=== PATIENT | female | born 1940 | race Caucasian/White ===

== ENCOUNTER 2016-10-31 19:19 | Inpatient (IN) | payer MEDICARE ==
[~2016-10-31] VITALS: Ht 165.1 cm; Wt 77.4 kg
--- NOTE | ~2016-10-31 | CON ---
PATIENT'S NAME: SHANNON YEH [facility] AGE: 75 Y [address] ROOM: [id number] [place], [place] [address] LOCATION: GICU ADMIT DATE: 10/31/2016 Consultation DISCHARGE DATE: FAMILY PHYSICIAN: PHYSICIAN, NO ATTENDING PHYSICIAN: JESSIE CERRATO V DATE OF CONSULTATION: 11/07/2016 HISTORY OF PRESENT ILLNESS: The patient was evaluated and discussed with the treatment team. Shannon was evaluated earlier by Dr. Dawn on 11/04/2016 and consult was reviewed. Also case reviewed with Dr. Michaels. Also called her , Bandar Yeh, to get some background information. The clinical concerns recently have been confused and a delirium kind of picture, restlessness, agitated, and not the most aware of her surroundings. She is on IV Ativan which is being utilized on a p.r.n. basis. The feels that since the addition of the Ativan, she has been more slurred and confused which can happen on the benzodiazepines. That is pretty much the only psychotropic medication being utilized at this time. The medical issues were assessed and reviewed as well. reports that they have been together for 58 years now and Shannon has a history of depression for the last several years and also points out that she is extremely sensitive to psychotropic medications. "She ." Same reaction on some of the pain medications and anxiety medications have been utilized in the past. states that the baseline function is really good. No cognitive deficits whatsoever, but before all this happened intelligent, very verbose, and no concerns around any confusion, until she was found unresponsive which led to this hospitalization. MENTAL STATUS EXAMINATION: Restless, lying in her bed. Increased response latency. Able to understand questions. Try to give us answer but struggling. Could not tell me her whereabouts. Could not tell me the name of the or her date of , for example. Affect was somewhat restricted, almost flat. for a long time but not able to respond, needed to be physically restricted because of being a fall risk. ASSESSMENT: 1. Delirium, acute and perhaps etiology multiple. 2. Bipolar disorder, by history. PLAN: At this time, we will discontinue the IV Ativan. Switch her to a small dose PATIENT'S NAME: SHANNON YEH [facility] AGE: 75 Y [address] ROOM: [place] [address] LOCATION: [facility] ADMIT DATE: 10/31/2016 Consultation DISCHARGE DATE: FAMILY PHYSICIAN: PHYSICIAN, NO ATTENDING PHYSICIAN: JESSIE CERRATO V of oral Ativan 0.25 mg t.i.d. In the short term, will augment with Risperdal 0.25 mg b.i.d. The patient is able to accept the medications that are crushed. It is hoped that the Risperdal is only going to be utilized in a short term basis to address the restlessness and the agitation. The risks, benefits, including the FDA warning were discussed with the , Bandar, and he was in agreement. Risperdal can be discontinued in about a couple of weeks. MD LINDA SINGH/reena /[id number] d: 11/07/167 t: 11/12/16 1359, CONSULTATION REPORT
--- NOTE | ~2016-10-31 | DS ---
PATIENT'S NAME: LEISA PRATER [facility] AGE: 75 Y [address] ROOM: [id number], [place] [address] LOCATION: GICU ADMIT DATE: 10/31/2016 Discharge Summary DISCHARGE DATE: 11/17/2016 FAMILY PHYSICIAN: PHYSICIAN, NO ATTENDING PHYSICIAN: Abram Miranda V FINAL DIAGNOSES: 1. Acute encephalopathy. 2. Anoxic brain insult. 3. Paroxysmal atrial fibrillation. 4. Pcf-VC-edujwdfu myocardial infarction. 5. Diastolic congestive heart failure. 6. Duodenal ulcer. 7. Acute blood loss anemia secondary to ulcer and left leg bleed. 8. Bipolar disorder. 9. Left groin spontaneous bleed. 10. Leukocytosis, felt to be leukemoid reaction. HISTORY OF PRESENT ILLNESS: For details of admission, please see the history and physical dictated by Dr. Miranda. In short, the patient was found obtunded by her and admitted here, was transferred here for higher level of care. She was intubated upon arrival. LABORATORY DATA: ABGs on admission; pH 7.35, pCO2 38, PO2 140. Her lactate was 2.5. She was intubated. On admission, sodium 143, the highest it got was 148 on November 04, prior to discharge 143. Potassium on admission was 4.3, did get as low as 2.6 on November 03. It was 2.8 on the . 2.7 on the , prior to discharge 3.9. Chloride on admission was 113, discharge 107. CO2 on admission was 17, discharge 28. BUN on admission was 11, discharge 15. Creatinine on admission was 0.8, discharge 0.5. Liver enzymes on admission were normal. Magnesium on admission 1.9, most prior to discharge 2.3. Cardiac enzymes on admission were normal. On November 05, her CK was found to be 937, MB 12.3, with a troponin of 7.3. Her troponins were negative on admission, it became elevated on the of 7.07. ProBNP on the was 21,524. Dilantin level on the was 5.6. Salicylate level on admission was 14.1, TSH on admission was 0.645. Parathyroid hormone on November 02 was 247. Prolactin level on admission was 76.5. Her white blood cell count on admission was 7.2, it did come to 14.2 right away, remained in the teens until on the , it went to 26.2, most prior to discharge was 13.8. Hemoglobin on admission was 14.4, she did drop into the 12 range on the , remained stable there, on the was noted to be 10.4 and then dropped to 8. Most prior to discharge, it was 8.5. Her MCV on admission was 93.8. Platelet count on admission was 353, most prior to discharge 388. D-dimer on admission was 0.85. Procalcitonin on admission was negative. Urinalysis on admission did not show any evidence of infection. Repeat on the did not show any PATIENT'S NAME: LEISA PRATER [facility] AGE: 75 Y [address] [id number] [address] LOCATION: [facility] ADMIT DATE: 10/31/2016 Discharge Summary DISCHARGE DATE: 11/17/2016 FAMILY PHYSICIAN: PHYSICIAN, PATTY ATTENDING PHYSICIAN: Abram Miranda V evidence of infection. Urine drug screen on admission was negative. MICROBIOLOGY DATA: Blood cultures were negative. X-RAY DATA: On admission, a chest x-ray did not show any acute like changes. CT scan of the brain on admission working up for stroke did not show any acute intracranial hemorrhages or abnormalities. MRI performed on the showed qvnahrmu-hx-mdsgyk atrophy, no acute ischemic changes. CT scan of the chest, the PE protocol done on the showed edema but did not show any evidence of pulmonary edema. CT angiogram of abdomen and pelvis done on November 09 showed suspected hemorrhage in the adductor muscles on the left thigh. CARDIOVASCULAR DATA: Heart catheterization done by Dr. Becker showed really nonobstructive coronary artery disease. Please see the cath note for full details. Echocardiogram done at admission showed that her ejection fraction was 55% to 60%. She had grade 1 diastolic dysfunction. HOSPITAL COURSE: The patient was admitted initially into the intensive care unit. She was intubated. She was initially worked up with a stroke protocol based upon her presentation. A CT scan was done in the ER and MRI was ordered. Neurology was asked to see the patient. Her prolactin value did return elevated, so there was some concern that she had a seizure. She was hypokalemic, she was replaced. She was given IV hydration. Her cardiac enzymes were obtained. She was started on IV antibiotics empirically and cultures were obtained, which did eventually return negative. There was some thought that this might be a systemic serious type reaction. She did require Precedex for sedation. Tube feeds were initiated to help with nutritional status. She was hypocalcemic. This needs to be replaced as well. The patient was able to be extubated on November 03. She then began exhibiting behavior type issues. Shortly after extubation, she did have stridor and received Solu-Medrol and racemic epinephrine. She had been on steroids and this was weaned. She did require Zyprexa for her agitated behaviors. She did have fairly high oxygen requirements. Her potassium was noted to be low and she was given potassium. Her cardiac enzymes were obtained when she presented with supraventricular tachycardia, atrial fibrillation type picture. She also appeared to be acutely short of breath. She was seen by Cardiology. When her troponins returned elevated, she was started on acute coronary protocol and given Lasix. She is given a dose of IV Lasix. She was taken to the electroplating laborer by Dr. Becker. Please see his catheterization note for full details. There were no interventions required at that time. It was felt that she had a non-STEMI. She was on medication for seizures. There were adjustments made in her antianginals and medicines for congestive heart failure. She continued to have very aggressive behavior, so Psychiatry did see her. They initially have placed her on Ativan and Risperdal. Medications for her seizures were adjusted. She was tachycardic and she did receive diltiazem. Her antibiotics PATIENT'S NAME: LEISA PRATER [facility] AGE: 75 Y [address] ROOM: [id number] [place] [id number] LOCATION: [facility] ADMIT DATE: 10/31/2016 Discharge Summary DISCHARGE DATE: 11/17/2016 FAMILY PHYSICIAN: PHYSICIAN, NO ATTENDING PHYSICIAN: Abram Miranda V had been stopped shortly after admission, it was determined that she did not have any ongoing infection. A CT scan of the chest was done to rule out a PE protocol on because of the new onset atrial fibrillation. A PICC line was placed so that we did have IV access. She was given sotalol. She developed diarrhea, so she is checked for C. diff. She did go in and out of atrial fibrillation, but she then did eventually convert to sinus rhythm. She became hypotensive and her hemoglobin was dropping. She required 2 units of packed red blood cells on the . At that time, Dr. Berry was asked to see her. The heparin was stopped. She was given a dose of ProAmatine. Dr. Berry did take her and felt that she needed to have an EGD to evaluate for bleeding. The EGD did show anastomotic ulcer. She has a history of a surgery. She was put on a PPI and Carafate. Her hemoglobin did remain stable. She then also was noted to have some bruising in her left leg. She did in fact was noted to have a bleed in her left leg. After that, her white blood cell count became very elevated. There were no evidence of infection. She was worked up as it was felt that it was a leukemoid type reaction. She did continue to improve. Dr. Winter was asked to see her to see if she is a candidate for inpatient rehab. Her kidney function and electrolytes were monitored closely. Dr. Winter did feel that she would benefit from going to rehab. Her did speak with me about medications and the concern about being on Risperdal and the Ativan. The decision was made to try and wean her Risperdal. The patient did continue to improve and was felt to be stable enough to be transferred to inpatient rehab on the . She is to have a regular diet. Weightbearing as tolerated. PT, OT, and Speech to work with her. MEDICATIONS: 1. Aspirin 81 mg daily. 2. Lipitor 40 mg daily. 3. Lactinex 4 tablets three times daily. 4. Zestril 2.5 mg daily. 5. Ativan 0.25 mg 3 times daily. 6. Magnesium oxide 400 mg daily. 7. Protonix 40 mg daily. 8. Dilantin 100 mg 3 times daily. 9. Risperdal 0.25 mg, which would stop on the and then she is to go 0.25 mg every other day for 4 more doses. 10. Betapace 40 mg twice daily. 11. Carafate 1000 mg before meals and at bedtime. 12. Myrbetriq 50 mg daily. 13. Depakote 500 mg twice daily. 14. Tylenol 650 mg every 4 hours. 15. Prevalite 4 g 4 times daily as needed for diarrhea. 16. Zinc oxide ointment for skin rash. 17. Ascorbic acid 50 mg daily. PATIENT'S NAME: LEISA PRATER [facility] AGE: 75 Y [address] ROOM: [place] [address] LOCATION: [facility] ADMIT DATE: 10/31/2016 Discharge Summary DISCHARGE DATE: 11/17/2016 FAMILY PHYSICIAN: PHYSICIAN, NO ATTENDING PHYSICIAN: Abram Miranda V 18. Calcium with vitamin D one tablet at bedtime. 19. Vitamin D 2000 units daily. 20. Albuterol inhaled as needed. OVERALL PROGNOSIS: At discharge was fair mainly because of her psychiatric issues. CHARITO DUPONT MD LAW/modl /[id number] d: 11/18/16 0247 t: 11/20/16 1509, DISCHARGE SUMMARY
--- NOTE | ~2016-10-31 | CATH ---
Cardiac Diagnostic Report Demographics Patient Name JOSI Carranza Gender Female Date of 1940 Age 75 year(s) Patient Number [id number] Date of Study 11/05/2016 Visit Number [id number] Room Number G62[address] [place] [id number] Ht 165.1 cm Wt 78 kg Referring Ruben Valverde Primary Physician Physician Braulio ABDALLA Performing Efstratiou Secondary Physician Physician Karla Abdi MD Diagnostic Efstratiou Assisting Physician Physician Karla Abdi MD Interventional Physician Nitrator Operator Physician Findings and Conclusions Diagnostic Findings and Conclusion Moderate pulmonary hypertention Moderately elevated wedge pressure EF 40 akinetic anterolateral wall Mild MR Moderate diffuse CAD Does not explain recent AMI Possible embolization of thrombus. Q waves and enzyme elevation not characteristic of Takotsubo Diagnostic Recommendations Medical management of acute CHF and ischemic cardiomyopathy Procedure Description The patient was brought to the diagnostic cardiac catheterization-EP laboratory by home performance laborer personal in an emergent fashion. Physician deemed procedure as EMERGENT. The planned puncture-incision site(s) were shaved and prepped with ChloraPrep and draped in the usual sterile manner. Supplemental oxygen administered. Arterial access. The access site was infiltrated with lidocaine. The vessel was entered with the Seldinger technique. A sheath was advanced into the vessel and used for catheter placement. Right heart catheterization. A Gregory Levi catheter was successfully advanced to the right atrium, right ventricle, pulmonary artery, and pulmonary artery wedge position under fluoroscopic guidance. Resting hemodynamics were obtained. Measurements included pressures. Selective right coronary angiography. A catheter was advanced into the right coronary vessel ostium under fluoroscopic guidance. Contrast was injected by hand. Images were obtained in multiple projections. Selective left coronary angiography. A catheter was advanced into the left coronary vessel ostium under Fluoroscopic guidance. Contrast was injected by hand. Images were obtained in multiple projections. A catheter was advanced across the aortic valve to the left ventricle under fluoroscopic guidance. Resting hemodynamics were obtained. With the catheter at the left ventricular apex, contrast was injected. Images were obtained in OLVERA projection. Post-ventriculography LV pressure was obtained. The catheter was gradually withdrawn into the aorta with continuous pressure recording. Hemostasis: The sheath(s) was removed and manual compression was performed. Hemostasis was achieved. Hemostasis was achieved. The patient was transported back to the nursing floor via bed with home performance laborer personnel in stable condition while monitored. Diagnostic Cath Status: Urgent Procedure Procedure Type Diagnostic procedure:Ventriculogram:, Left, Angiography:, Right and Left Heart Cath, Coronary Angios Indications: Acute myocardial infarction. The procedure was explained in detail to the patient. Risks, complications and alternative treatments were reviewed. Written consent was obtained. Medications Reviewed with Patient prior to Procedure. Angiographic Findings Dominance: Right Cardiac Arteries and Lesion Findings LMCA: Abnormal.30% distal Lesion on LMCA: Ostial.30% stenosis . LAD: Abnormal.30 % proximal mid Lesion on Prox LAD: 30% stenosis . Lesion on 1st Diag: Ostial.50% stenosis . LCx: Abnormal.30% ostial, 20 mid Lesion on Prox CX: Ostial.30% stenosis . Lesion on Mid CX: 20% stenosis . RCA: Abnormal.30% mid Lesion on Mid RCA: 30% stenosis . Coronary Tree Procedure Data Procedure Date Date: 11/05/2016Start: 10:07 PMEnd: 11:15 PM Entry Locations - Antegrade Percutaneous access was performed through the Right Femoral vein. A 6 Fr sheath was inserted. - Retrograde Percutaneous access was performed through the Right Radial artery (Primary location). A 6 Fr sheath was inserted. Hemostasis was successfully obtained using a TR band. Closure Comments: 19 cc air placed by Dayron Mcwilliams.. Procedure Medications Order and Administration + + + +--------+ !Time !Medication !Dosage !Route ! + + + +--------+ !11/05/2016 10:11 PM !Radial Heparin (ACC_3) !4000 units !I.A. ! + + + +--------+ !11/05/2016 10:11 PM !Radial Verapamil !3 mg ! ! + + + +--------+ !11/05/2016 10:11 PM !Radial Nitroglycerin !200 mcg ! ! + + + +--------+ !11/05/2016 10:24 PM !Lasix !20 mg !I.V. ! + + + +--------+ !11/05/2016 10:27 PM !unlisted medication !100 mg ! ! + + + +--------+ Devices Used - A6 Fr. Balloon Wedge Catheterwas used for:Right heart cath. - A6 Fr. BS JR 4 Diag. Catheterwas used for:Right coronary angiography. - A6 Fr. BS JL 3.5 Diag. Catheterwas used for:Left coronary angiography. - A6 Fr. BS Angled Pigtail Diag. Catheterwas used for:LV Pressures. Contrast Material - Isovue 35801 ml Fluoroscopy Time: Diagnostic: 5:00 minutes. Total: 5:00 minutes. Fluoroscopy Dose: Diagnostic: 397 mGy. Total: 397 mGy. Estimated Blood Loss: 5 ml. Medical History Allergies - Latex. - Sulfa. Risk Factors The patient risk factors include:hypercholesterolemia, dyslipidemia and prior heart failure . Admission Data Admission Date: 10/31/2016 Admission Time: 09:26 PM Insurance Payors: Medicare. Clinical Evaluation Leading to Procedure - There were no CAD presentation symptoms. VA LV function assessed as:Abnormal. Ejection Fraction - Method: LV gram. EF%: 40. Snapshots Hemodynamics Condition: Rest O2 Consumption: Estimated: 189.49Heart Rate: 99 bpm Oxygen Saturation +--------+-----+----+ +----+ + !Location!pCO2 !pO2 !% Saturation !Hgb !O2 Content ! +--------+-----+----+ +----+ + !RA ! ! !58.5 !13.1! ! +--------+-----+----+ +----+ + !PA ! ! !54.7 !13.1! ! +--------+-----+----+ +----+ + !FA ! ! !89.8 !13.1! ! +--------+-----+----+ +----+ + Pressures (mmHg) +-----+ + !Site !Pressure ! +-----+ + !RA ! () ! +-----+ + !RV !48/6 ,12 ! +-----+ + !PCW ! () ! +-----+ + !PA !40/19 (29) ! +-----+ + !PA !23/-9 (2) ! +-----+ + !LV !142/9 ,19 ! +-----+ + !LV !150/33 ,21 ! +-----+ + !AO !150/76 (110) ! +-----+ + !AO !/ (4) ! +-----+ + Cardiac Output +------+ + + + !Method!CO (l/min) !CI (l/min/m2) !SV (ml) ! +------+ + + + !Reza !3.03 !1.6 !30.48 ! +------+ + + + Valve Gradients and Areas + +--------+--------+--------+---------+ + + !Valve !Peak !Mean !Area !Index !Flow !Source ! + +--------+--------+--------+---------+ + + !Aortic !0 !0 ! ! !294.75 !Reza ! + +--------+--------+--------+---------+ + + !Aortic !0 !0 ! ! ! ! ! + +--------+--------+--------+---------+ + + Shunts Oxygen Values O2 Capacity 178.16 O2 Consumption 189.49 Flows (l/min) Qs 3.4 Vascular Resistance (dynes x sec x cm-5) + +----+---+----+---+---------+-------+ !CO method !TSVR!SVR!TPVR!PVR!TPVR/TSVR!PVR/SVR! + +----+---+----+---+---------+-------+ !Reza !1.44! !0.81! !0.56 ! ! + +----+---+----+---+---------+-------+ !Qp or Qs !1.29! ! ! ! ! ! + +----+---+----+---+---------+-------+ Signatures dtt: Alcides Becker dtd: 11/05/16 2207 Physician Self Edit
--- NOTE | ~2016-10-31 | CON ---
PATIENT'S NAME: LEISA YEH [facility] AGE: 75 Y [address] ROOM: G6212 [place], [place] [address] LOCATION: GICU ADMIT DATE: 10/31/2016 Consultation DISCHARGE DATE: FAMILY PHYSICIAN: PHYSICIAN, NO ATTENDING PHYSICIAN: JESSIE CERRATO V HISTORY OF PRESENT ILLNESS: The patient was seen on a stroke alert in the emergency room today, 10/31/2016, at 15 minutes after 7:00 p.m. I was called to assess Ms. Yeh who was a 75-year-old female patient. I obtained a history from her , Gerry. He tells me that the patient is a generally healthy lady, but does suffer from a manic, depressive state and has been fairly depressed over the past 2 weeks. However, he denies that she has any suicidal ideations. She does have chronic issues with pain associated with arthritis and has been on unknown medications. The patient's says that he was with her at this morning, and the patient went out shopping while he stayed in the car. He did not notice any problems with her during the day. They came back to have lunch and she asked for particular lunch, but he did not notice any problems during lunch such as problems eating or chewing. Eventually, he went out to do some work in the front yard and came in at around 2:00 and then apparently saw her in her bedroom. He went in to take a shower and supposedly did cuddle up with her in the bed and noticed that she was acting strange, either was having mumbling of her speech or was not making much sense according to the , tried to "wake her up" and waited about 10 to 20 minutes again and tried to wake her up again. He did not notice any problems with the patient breathing funny. He said that she was breathing shallow, but she was having some hiccups. He did not notice any cyanosis of the skin or of the lips. It seems as though he possibly waited again while she was unresponsive and 15 minutes thereafter tried to wake her up again, then sought help. I am not aware of the time between the patient's first noticing her obtunded and when EMS came as it may have been a few hours from my conjecture. The patient was seen in the field and had to be intubated due to airway support. The EMS says that she was completely unresponsive, not moving any limb. They did a pulse oxygenation on her and it was noted to be in the 60s. Giving her oxygen at that time did increase the pulse oxygenation, but she had to be intubated in the field for airway support. When I saw her in the emergency room, she was unresponsive. She was not moving any limbs. Her pupils were fixed forward and 5 mm, mildly dilated. There was no evidence of any increased tone in the limbs or flaccid limbs. She was not moving any extremity until around 20 minutes later when there was some movement of her left upper extremity. Vital signs apparently showed sinus tachycardia in the 110 to 120 range. Blood pressure was reported to me to be "excellent" in the field. She had no reported hypotension. The patient again was not noted to be cyanotic, she had good color. CAT scan was done, which showed no evidence of an intracranial hemorrhage or evidence of an evolving stroke. She had generalized atrophy of the brain with appropriate dilation of the ventricles for the amount of PATIENT'S NAME: LEISA YEH [facility] AGE: 75 Y [address] ROOM: [place] [address] LOCATION: [facility] ADMIT DATE: 10/31/2016 Consultation DISCHARGE DATE: FAMILY PHYSICIAN: PHYSICIAN, NO ATTENDING PHYSICIAN: JESSIE CERRATO. I saw no evidence of a dense MCA sign. Further speaking to the , he denies that she has any drug abuse problems. He denies that she has any alcohol problems. She occasionally does binge alcohol, but he is unsure if she had alcohol recently. She supposedly does drink alcohol on an intermittent basis, certainly not on a daily basis, and the last alcohol, he believes, was over 1 week ago. There is no known history of coronary artery disease or hypertension. Of note, she does have severe depression. It is unclear as to whether this is bipolar depression. There is some report that her daughter committed suicide back in 2013. The patient's mother also had possible bipolar depression. The is unaware if the patient was ever on a mood stabilizing medication or if she is on any particular antidepressant medications. He is unaware of the particular pain medication that she is on, whether she is on any opiate medications or non-opiate medications. Current medical doctor is Dr. Barbosa in [place] who treats her for her arthritis. Again, no history of known diabetes or hypertension. FAMILY HISTORY: Consistent with possible bipolar depression in her grandmother and in her daughter. The patient is for 58 years. They have no current children as mentioned. A daughter committed suicide in 2013. The patient and her are . 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 SMOKING HISTORY: She stopped smoking a number of years ago, but is "addicted to nicotine gum chewing." REVIEW OF SYSTEMS: The patient is a zouox-ng-ec-healthy patient, otherwise with a history of depression. Was found by sometime perhaps around 2:30 p.m. unresponsive, lying in the bed. The patient's tried to wake her up. He reported that she had her head face down into the pillow, and then he put her up, reported, on to her back, this being while she was unresponsive. There was a possibility she was having some hiccuping and was essentially unresponsive and not making any word production. For any signs of potential seizures, there was some possible movement of her limbs in a jerking manner, but it is difficult to assess for seizure. There is a history here of arthritis for which the patient is on chronic pain medications of unknown. We do not have a medication list presently. The rest of review of systems is within normal limits according to the and the history. PHYSICAL EXAMINATION: HEENT: The patient has slightly dilated pupils to 5 mm. Eyes are fixed forward. There is no corneal reflex present. There is no gag. The patient does have minimal response to pain, but I cannot appreciate any withdrawal of PATIENT'S NAME: LEISA YEH [facility] AGE: 75 Y [address] ROOM: [address] [address] LOCATION: [facility] ADMIT DATE: 10/31/2016 Consultation DISCHARGE DATE: FAMILY PHYSICIAN: PHYSICIAN, NO ATTENDING PHYSICIAN: JESSIE CERRATO V her limbs. There was slight withdrawal to her left upper extremity. Presently, the patient is intubated. She did not receive a current sedation. IMPRESSION: An unknown reason for the patient having loss of consciousness. The history provided by the is not giving me information that she may have had a seizure. Perhaps, the patient may have had an event of becoming more obtunded if she was on an opiate pain medication. We simply do not know her medication list, all we know is that she was found unresponsive and relatively hypoxic. It is interesting that the patient's says that she was lying on her stomach with the face into the pillow and he placed her on her back. She is known to have severe depression and over the last 2 weeks, there is severe depression going on according to the . He denies that the patient ever had any suicidal ideations though. We simply have to do a drug toxicology and possibly treat for overdose if possible. There is no evidence though of an obvious opiate overdose based upon her pupils that are normal, not widened, and it is quite possible that the patient did have a generalized seizure and is postictal presently, though it is many hours at this point now, and I would expect that the patient would have some improvement even after a generalized seizure. The patient will be placed into the ICU and laboratories will be done. I will follow along with the hospital staff on the patient's status. MD OMAR REEDER/adolfol /[id number] d: 11/01/16 0239 t: 11/22/16 0818, CONSULTATION REPORT
--- NOTE | ~2016-10-31 | ECHO ---
Transthoracic Echocardiography Report (TTE) Demographics Patient Name LEISA PRATER Date of Study 11/06/2016 Patient Number [id number] Visit Number [id number] Date of 1940 Room Number G6232 Gender Female Number Age 75 year(s) Referring Donnell Khalil MD Profile Mill Operator Tape Control Lesley RVT, RDCS Physician Emi Melendez RDCS, RVT Physician Interpreting Caryl Danielle MD Patient Services Manager Physician Supervising Ordering Donnell Khalil MD, MD/MLP Physician Nurse Stress Game Preserve Manager Conclusions Contractility Score Summary Normal Left Ventricular contractility was noted. Summary Technically difficult exam. Normal LV/RV size and systolic function .The estimated left ventricular ejection fraction is 55-60%. Moderate concentric left ventricular hypertrophy. Diastolic assessment reveals Grade I diastolic dysfunction. No significant valvular abnormalities. No evidence of pericardial effusion. Procedure Type of Study TTE procedure:2D Echocardiogram. Procedure Date Date: 11/06/2016 Start: 03:53 PM Study Location: Inpatient Portable Technical Quality: Limited visualization due to combative patient. Indications:Supraventricular Tachycardia. Appropriate Use Criteria: 9 Patient Status: Routine HR: 96 bpm BP: 134/69 mmHg Allergies - Latex. - Sulfa. M-Mode/2D Measurements LV Diastolic Dimension: 4.34 cm LV Systolic Dimension: 1.96 cm LV Septum Diastolic: 1.49 cm LV PW Diastolic: 1.33 cm AO Root Dimension: 2 cm AV Cusp Separation: 1.4 cm RV Diastolic Dimension: 2.36 cm LA Dimension: 2.6 cm LA volume: 17 ml RV Base: 2.12 cm LVOT: 2.1 cm RV Mid: 1.6 cm RV Length: 5.07 cm TAPSE: 2.27 cm TDI-S': 21.2 cm/s Doppler Measurements AV Peak Velocity: 1.55 m/s MV Peak E-Wave: 0.83 m/s AV Peak Gradient: 9.61 mmHg MV Peak A-Wave: 1.09 m/s MV E/A Ratio: 0.77 MV P1/2t: 80 msec TR Velocity:2.05 m/s TR Gradient:16.81 mmHg Estimated RVSP: 22 mmHg PV Peak Velocity: 0.81 m/s E' Septal Velocity: 0.07 m/s PV Peak Gradient: 2.64 mmHg E' Lateral Velocity: 0.06 m/s Estimated PASP: 21.81 mmHg A' Septal Velocity: 0.15 m/s Findings Left Ventricle Moderate concentric left ventricular hypertrophy. Diastolic assessment reveals Grade I diastolic dysfunction. Right Ventricle Normal right ventricle structure and function. Left Atrium Normal left atrial size. Right Atrium Normal right atrial size. IVC imaging is consistent with normal RA pressures. Mitral Valve Trivial mitral regurgitation by color Doppler. Aortic Valve Mild aortic valve sclerosis. Tricuspid Valve Normal tricuspid valve structure and function. Pulmonic Valve Normal pulmonic valve structure and function. Pericardial Effusion No evidence of pericardial effusion. Miscellaneous Visualized portions of the aortic root and ascending aorta appear normal in size. Pleural Effusion No evidence of pleural effusion. Contractility Score LV regional wall motion:(0-Non visualized 1-Normal 2-Hypokinesis 3-Akinesis 4-Dyskinesis 5-Aneurysm) Signature dtt: MAYA HILL dtd: 11/06/16 1553 Physician Self Edit
--- NOTE | ~2016-10-31 | CON ---
PATIENT'S NAME: JOSI [facility] AGE: 75 Y [address] ROOM: [place] [address] LOCATION: GICU ADMIT DATE: 10/31/2016 Consultation DISCHARGE DATE: FAMILY PHYSICIAN: PHYSICIAN, NO ATTENDING PHYSICIAN: JESSIE CERRATO V REASON FOR CONSULTATION: Hypotension, question of GI bleed. HISTORY OF PRESENT ILLNESS: This is a 75-year-old female, who was admitted on 10/31/2016 with history of respiratory failure, silent MS, and has been on IV heparin along with beta angel. Dr. Becker of cardiology service contacted me in view of concern about GI bleed in the setting of IV heparin and previous history of duodenal ulcer and use of nonsteroidals. The patient is unable to provide much history, and as per nursing, there has been no obvious GI bleed. She denies any abdominal pain. There is a remote history of "bleeding duodenal ulcer" and therefore the concern. PAST MEDICAL HISTORY: 1. Recent MS. 2. Bipolar disorder. 3. Encephalopathy. 4. Respiratory failure. 5. Deep venous thrombosis. The patient has been addressed by Neurology service. MEDICATIONS: Noted in her MAR. IV heparin was discontinued and placed on Protonix. SOCIAL HISTORY: As reviewed in the chart. FAMILY HISTORY: Reviewed. REVIEW OF SYSTEMS: As listed in the HPI and otherwise negative. PHYSICAL EXAMINATION: GENERAL: The patient is awake, alert, however, responds poorly to questions. VITAL SIGNS: Stable. PATIENT'S NAME: [facility] AGE: 75 Y [address] ROOM: [place] [address] LOCATION: [facility] ADMIT DATE: 10/31/2016 Consultation DISCHARGE DATE: FAMILY PHYSICIAN: PHYSICIAN, NO ATTENDING PHYSICIAN: JESSIE CERRATO V HEENT: Nonicteric sclerae. Pupils round and reactive. CHEST: Clear to auscultation. HEART: S1, S2 normal. ABDOMEN: Soft and nondistended without palpable masses or tenderness. LABORATORY DATA AND X-RAYS: Labs are reviewed and hemoglobin drop is noted. The patient is receiving blood transfusion. ASSESSMENT AND PLAN: A 75-year-old female with a suspected upper gastrointestinal bleed in the setting of anticoagulation therapy and previous history of "duodenal ulcer" and use of nonsteroidals. We will arrange for urgent upper endoscopy, and if negative may be reasonable to obtain CT of the abdomen to rule out retroperitoneal bleed. Further recommendations pending the results of this evaluation. Thank you for this consult. BIGG LAZAR MD AM/reena /[id number] d: 11/09/16 2243 t: 11/10/16 1128, CONSULTATION REPORT
--- NOTE | ~2016-10-31 | CON ---
PATIENT'S NAME: SHANNON PRATER [facility] AGE: 75 Y [address] ROOM: G6232 [place], [place] [address] LOCATION: GICU ADMIT DATE: 10/31/2016 Consultation DISCHARGE DATE: FAMILY PHYSICIAN: PHYSICIAN, NO ATTENDING PHYSICIAN: JESSIE CERRATO V DATE OF CONSULTATION: 11/04/2016 PSYCHIATRIC CONSULTATION IDENTIFYING DATA: Shannon is a 75-year-old, . She is an [place] female, lives with her in [place]. Admitted to the ICU initially and subsequently to the medical floor, after her found her unconscious. Information obtained by talking to the patient and from the and from the patient's nurse, Heather. More than 50% of time spent in counseling and coordination of care. HISTORY OF PRESENT ILLNESS: As per the information available from the , he found the patient unconscious and brought her to the hospital. reports that the patient has a chronic history of mental health struggles and has been diagnosed with bipolar disorder, where she has had highs and lows of moods. Over the last couple of months, things have been a lot worse as well. She has not been on any medications lately with her moods and the patient's feels that the patient does need to be on medication. Also the reports that she has been under a lot more stress because of the some of the family stressors with none of the children want to talk to her, anymore as they blame her for her what happened to one of their siblings, who committed suicide two years ago. The patient continues to be very irritable and very verbally aggressive and although no physical aggression. She does not want to talk. She does not want to say anything. Has been mean towards the nurses and towards the other staff members as well. Has not been sleeping very well. No reports of any suicidal or homicidal ideations or gestures. No reports of any psychotic behaviors just keep on insisting that she wants to go home. PAST PSYCHIATRIC HISTORY: As per the , she has been diagnosed with bipolar disorder. Has seen a psychiatrist in the past and has been treated with medications, but he does not remember what those medications were. MEDICAL AND SURGICAL HISTORY: The patient had an MRI done, which did not show any acute issues. They were concerned about seizures, but no history of seizures as well as per the PATIENT'S NAME: SHANNON PRATER [facility] AGE: 75 Y [address] ROOM: [address] [place] [address] LOCATION: [facility] ADMIT DATE: 10/31/2016 Consultation DISCHARGE DATE: FAMILY PHYSICIAN: PHYSICIAN, NO ATTENDING PHYSICIAN: JESSIE CERRATO V . For more information on medical and surgical history, please refer to the history and physical done by the primary care provider. DRUG AND ALCOHOL HISTORY: The patient has a chronic history of struggles with alcohol. Has been reports that she was a heavy drinker, but lately he has been trying to control it and she drinks once or twice a month now. No history of drug use. FAMILY HISTORY: Extensive family history of psychiatric problems. One of the daughters committed suicide. PERSONAL AND SOCIAL HISTORY: The patient currently lives in a [place] with her . They have been 58 years. They have five children, two of them have . 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 MENTAL STATUS EXAMINATION: The patient is alert and awake. She is oriented to place and person, is not cooperative with fair hygiene. Fair grooming. Appropriately dressed. Good eye contact. Psychomotor agitation. No rigidity or tremor. Affect is of decreased range, increased intensity. Mood is labile speech is fluent. Thought process is disorganized. No suicidal or homicidal ideation. No psychosis. Poor insight, poor judgment, struggling with memory and concentration. ASSESSMENT: Bipolar disorder, type 1, most recent episode manic, severe, without psychosis. PLAN: At this time, I would recommend that the patient started taken off the Dilantin. Her Dilantin levels were subtherapeutic any ways and we start her on IV Depakote to help with mood stability. We will start her on 500 mg twice daily. Also will augment this with Ativan 0.5 mg q.6 hours IV as well. This can be switched to oral when she is willing to take oral medications. She is on Cymbalta 60 mg once daily. Will decrease that to 30 mg once daily as that can induce her into a manic episode. Primary care team will continue to address the physical health concerns and the patient will be followed by the Psychiatry service as needed. Thanks for this interesting referral. PATIENT'S NAME: SHANNON PRATER [facility] AGE: 75 Y [address] ROOM: [address] [address] LOCATION: [facility] ADMIT DATE: 10/31/2016 Consultation DISCHARGE DATE: FAMILY PHYSICIAN: PHYSICIANPATTY ATTENDING PHYSICIAN: JESSIE CERRATO V MD LAWRENCE METZ/modl /[id number] d: 11/04/16 214 t: 11/13/16 1220, CONSULTATION REPORT
--- NOTE | ~2016-10-31 | ER ---
PATIENT'S NAME: LEISA PRATER [facility] AGE: 75 Y [address] ROOM: [address] [address] LOCATION: [facility] ADMIT DATE: 10/31/2016 ER/Outpatient Report DISCHARGE DATE: FAMILY PHYSICIAN: PHYSICIAN, NO ATTENDING PHYSICIAN: JESSIE CERRATO V HISTORY OF PRESENT ILLNESS: A 75-year-old female who presents today unresponsive. She was transferred here by [place] [address] [facility]. The patient's story was that the is giving most of the history as the patient was found unresponsive and intubated by EMS. At 1700 hours, 10/31/2016, she was fine and acting normally, he went to take a shower, and when he got out of shower, she was unresponsive. When EMS got there, she was satting only 60% on room air and complete only responsive and no gag reflex; so, they intubated her for her respiratory failure and brought her in. The says that the patient was just fine before he went to take a shower, she was not complaining of any headache, dizziness, nausea, or vomiting. She did not have any slurred speech, difficulty talking, swallowing, or walking; so, he is unclear about what happened. PAST MEDICAL HISTORY: Includes arthritis, depression. PAST SURGICAL HISTORY: Includes x5. SOCIAL HISTORY: She does not smoke, drink, or use any drugs, according to the . MEDICATIONS: Please see med list. ALLERGIES: PLEASE SEE MED LIST. REVIEW OF SYSTEMS: Mostly unable to assess due to the patient's acuity at this time. PHYSICAL EXAMINATION: VITAL SIGNS: Weight 87 kilos, blood pressure 124/69, heart rate 92, respiratory rate 16, temp is 97.2, and sats are 100% on the vent at this time. The patient has a GCS of 0 at this time. HEENT: She does not open her eyes spontaneously. She is intubated. She does not withdraw or localize to pain. Pupils are 3-mm and fixed and nonreactive. She is not breathing over the vent. No spontaneous breaths. HEART: Rate is regular rate and rhythm though. Heart rate is about 85 beats PATIENT'S NAME: LEISA PRATER [facility] AGE: 75 Y [address] ROOM: G6212 [place], [place] [address] LOCATION: [facility] ADMIT DATE: 10/31/2016 ER/Outpatient Report DISCHARGE DATE: FAMILY PHYSICIAN: PHYSICIAN, NO ATTENDING PHYSICIAN: JESSIE CERRATO V per minute at this time, regular on the monitor, no ectopy. LUNGS: She has lungs sounds, but sounds clear. No wheezing, no crackles that I hear. ABDOMEN: Soft, nontender, nondistended. She does have a large scar from her site. SKIN: Warm, dry, and intact. NEURO: There is no signs of trauma; otherwise, so, the patient's stroke alert was called. LABORATORY DATA: CT head was done and it was read as negative. There is no bleed and no acute stroke. The patient's vital signs have been fine. We checked lots of blood work including CBC, UA, urine drug screen, CMS, lactate, procalcitonin, aspirin, Tylenol levels, prolactin, cardiac enzymes, D-dimer, DVT, PT, PTT, also did a chest x-ray; so, chest x-ray showed that the ET tube was too high above the andre; so, we pushed it down 2 cm. Procalcitonin is less than 0.05. The urine shows 25 leuks, positive for nitrites, negative for blood. Troponin I was less than 0.04. CMS shows a sodium of 143, potassium 4.3, chloride 113, CO2 22, anion gap 12.3, glucose 118, BUN 11, creatinine 0.8, alk phos 76, AST 30, ALT 18, and GFR greater than 60. CPK 81, CK-MB is 0.8, acetaminophen is less than 2, and salicylate level is 14.1. CBC shows a white count of 10.2, H and H is 14.4/45.5, platelets are 353, no bandemia, D-dimer mildly elevated at 0.85, lactic acid was 2.5. The ABG that was done shows a pH of 7.35, pCO2 38, pO2 of 140, bicarb of 21, and FiO2 of 99%. Her pro-time PT was 11.3, INR was 1.08, and PTT was 26. EKG shows sinus rhythm, mildly prolonged DC at 201, so first-degree heart block, but there is no ectopy, there is no ST elevation or depression. A prolactin markedly elevated at 76.5. EMERGENCY DEPARTMENT COURSE: I discussed this with Dr. Stone, no role for tPA as she is completely obtunded, I do think this is most characteristic of a seizure with elevated prolactin, mildly elevated lactic acid. When I reevaluated the patient, her pupils are 4-mm and they were now reactive. She is now starting to breathe over the vent so, she is starting to choke or gag on the ET tube; so, we gave her some propofol and she was also withdrawing for pain; so, slightly improving neuro exam. I discussed this with Dr. Cerrato and the patient is to be admitted in guarded condition to the ICU. IMPRESSION: Unresponsive episode, active seizure. PATIENT'S NAME: LEISA PRATER [facility] AGE: 75 Y [address] ROOM: [place] [address] LOCATION: [facility] ADMIT DATE: 10/31/2016 ER/Outpatient Report DISCHARGE DATE: FAMILY PHYSICIAN: PHYSICIAN, NO ATTENDING PHYSICIAN: JESSIE CERRATO MD CAW/reena /[id number] d: 11/01/16526 t: 11/03/161952, OUTPATIENT REPORT
--- NOTE | ~2016-10-31 | HP ---
PATIENT'S NAME: LEISA PRATER [facility] AGE: 75 Y [address] ROOM: [place] [address] LOCATION: GICU ADMIT DATE: 10/31/2016 History & Physical DISCHARGE DATE: FAMILY PHYSICIAN: PHYSICIAN, NO ATTENDING PHYSICIAN: JESSIE CERRATO V DATE OF SERVICE: CHIEF COMPLAINT: Unresponsive. HISTORY OF PRESENT ILLNESS: This is provided entirely by the and the ER provider. The patient is a 75-year-old female who carries a past medical history of "arthritis," who was found obtunded by her at approximately 1700 hours, several hours earlier today. He saw her in her somewhat baseline state of health, went to take a shower, and then when he came out, the patient was entirely attended. When the paramedics arrived there, the patient was saturating 65%. She was placed on 15 L nonrebreather and was taken to the ER. The first ambulance was intercepted by the [facility] ambulance and the patient was intubated in the field. The reports that the patient may have exhibited some twitching, but he is not volunteering any clear convulsive activity. He does endorse that the patient has been very tired and sleepy for the last several months. Aside from that, she has a volunteered no complaints. In the ER, the patient initially had fixed pupils, but a workup did not reveal any abnormalities on the CT of her head or any significant metabolic abnormalities. Of note, her prolactin level was 76.5. REVIEW OF SYSTEMS: All systems have been reviewed and negative except for pertinent positives mentioned above. PAST MEDICAL HISTORY: This is reported by the , has depression and "arthritis." CURRENT MEDICATIONS: The patient's is not able to provide me with any of her medications. He just tells me that she has some arthritis pills some which may be opioids. He did check all of her medications and reports to me that he did not see anything missing. FAMILY HISTORY: The patient does not volunteer any significant family history. PATIENT'S NAME: LEISA PRATER [facility] AGE: 75 Y [address] ROOM: [place] [address] LOCATION: [facility] ADMIT DATE: 10/31/2016 History & Physical DISCHARGE DATE: FAMILY PHYSICIAN: PHYSICIAN, NO ATTENDING PHYSICIAN: JESSIE CERRATO V SOCIAL HISTORY: The does not volunteer any ongoing alcohol use. He does tell me that she takes nicotine gum. PHYSICAL EXAMINATION: VITAL SIGNS: Blood pressure 87/60, heart rate is in 70s, saturating 93% on 35% FiO2, respirations are entirely per the ventilator. She is afebrile. GENERAL: Appears as a well-developed, well-nourished, elderly female, entirely obtunded and not responding to any verbal or really any significant noxious stimuli. EYES: Pupils are approximately 4 mm, sluggish but reactive to light. NEUROLOGIC: Exam does not exhibit any clonus. ENT: Reveals no cervical lymphadenopathy. ENDOCRINE: No thyromegaly. LUNGS: Clear to auscultation in all juan. HEART: Rate is regular with no appreciable murmurs, gallops, or rubs. GI: Abdomen soft, nontender. : No costovertebral angle tenderness. VASCULAR: 2+ pedal pulses. MUSCULOSKELETAL: No muscle or joint abnormalities. SKIN: Warm and dry. PSYCHIATRIC: Exam cannot be conducted as the patient is completely obtunded. LABORATORY RESULTS: Significant for Accu-Chek of 134. Unremarkable basic metabolic profile. Lactate of 2.5. Prolactin of 76.5. Negative cardiac enzymes. Unremarkable CBC. Normal INR. Unremarkable urinalysis. Chest x-ray shows grossly clear lungs with ET tube which is considerably above the andre, which has been advanced. EKG is unremarkable for any ST-segment or T-wave abnormalities. ASSESSMENT AND PLAN: This is a 75-year-old female who will be admitted with acute hypoxic respiratory failure due to metabolic encephalopathy. Individual problems to be addressed as follows: 1. Acute hypoxic respiratory failure as reported by the field paramedics. At this point, the patient is saturating fine on 35% FiO2 and I believe that her hypoxia is likely related to a central neurological event. We will continue with ventilator support. 2. Encephalopathy. Given that she has unremarkable metabolic profile and a chest x-ray as well as no significant past medical history, in the setting of an elevated prolactin, we have to suspect that the patient may have had a seizure. I have discussed with Dr. Stone who saw the patient as well. We will load her with Dilantin and follow her levels. We will await further Neurology recommendations. PATIENT'S NAME: LEISA PRATER [facility] AGE: 75 Y [address] ROOM: [place] [address] LOCATION: [facility] ADMIT DATE: 10/31/2016 History & Physical DISCHARGE DATE: FAMILY PHYSICIAN: PHYSICIAN, NO ATTENDING PHYSICIAN: JESSIE CERRATO V 3. Borderline hypotension. We will hydrate the patient and start on pressors as needed. At this point, she has no evidence of shock. 4. Deep venous thrombosis prophylaxis will be pharmacologic as per ventilator order protocol. 5. Additional management will depend on clinical course. 6. This patient is critically ill. Critical care time dedicated to her care is 65 minutes. MD LUIS ANTONIO PEREZ/reena /[id number] D: [id number] T: [id number] HISTORY & PHYSICAL
--- NOTE | ~2016-10-31 | CON ---
PATIENT'S NAME: LEISA PRATER [facility] AGE: 75 Y [address] ROOM: [place] [address] LOCATION: GICU ADMIT DATE: 10/31/2016 Consultation DISCHARGE DATE: FAMILY PHYSICIAN: PHYSICIAN, NO ATTENDING PHYSICIAN: JESSIE CERRATO V REASON FOR CARDIOLOGY CONSULT: EKG changes and atrial fibrillation. HISTORY OF PRESENT ILLNESS: This is a 75-year-old white female admitted on 10/31/2016 with an acute hypoxic respiratory failure. She was found to be poorly responsive by her . She was assumed to be in a postictal state based off prolactin levels. She was subsequently extubated on 11/03. On 11/05/2016, she developed atrial fibrillation and had new EKG changes showing Q-waves in V1 and V3. The patient is also experiencing an acute congestive heart failure exacerbation with pulmonary congestion and elevated troponin levels. Of note, she is also very confused and does not answer health-related questions consistently. Due to the acute EKG changes, she was subsequently transferred to the catheterization suite where she underwent a selective coronary angiography. There was no noted coronary artery obstruction, but there was possibility of embolization of the thrombus, but overall catheterization could not explain recent acute WI. The catheterization did show moderate pulmonary hypertension as well as moderately elevated wedge pressure with an ejection fraction of 40% and akinetic anterior lateral wall. There was mild mitral regurgitation and moderate diffuse coronary artery disease, but once again, no obstructive coronary artery disease. At the time of this dictation, the patient is resting comfortably in bed. She does continue to be confused and called out to nursing staff for help and is tearful at times. PAST MEDICAL HISTORY: From chart review due to patient's neurologic status. 1. Hypercholesterolemia. 2. Arthritis. 3. History of GI ulceration. 4. Frequent UTIs. 5. Depression. 6. Anemia. PAST SURGICAL HISTORY: From chart review due to neurologic status. 1. x5. 2. Total hip replacement and pelvis repair in 2003. FAMILY HISTORY: From chart review. There was noted cancer in her parents and a history of CVA [facility] 75 Y [address] ROOM: [place] [address] LOCATION: GI ADMIT DATE: 10/31/2016 Consultation DISCHARGE DATE: FAMILY PHYSICIAN: PHYSICIAN, NO ATTENDING PHYSICIAN: JESSIE CERRATO V and depression in a grandparent. SOCIAL HISTORY: From chart review. History of tobacco use. There is no history of illicit drug use noted, but there was notation of social alcohol use. CURRENT MEDICATIONS: 1. Protonix 40 mg IV daily. 2. Ativan 0.5 mg IV every 6 hours. 3. Depacon 500 mg IV twice daily. 4. Dilantin 100 mg IV every 8 hours. 5. Heparin IV per ACS protocol. 6. Potassium chloride 40 mEq infusion. 7. Lasix 40 mg IV twice daily. 8. Solu-Medrol 30 mg IV twice daily. 9. Aspirin 81 mg p.o. daily. 10. Coreg 6.25 mg p.o. twice daily. 11. Potassium chloride 40 mEq p.o. twice daily. 12. Lipitor 40 mg p.o. daily. 13. Magnesium oxide 400 mg p.o. daily. 14. Prinivil 2.5 mg p.o. daily. MEDICATION ALLERGIES: Sulfa. REVIEW OF SYSTEMS: Pertinent positive review of systems listed in HPI. All other review of systems attempted to be evaluated, but due to patient's neurologic status unable to thoroughly evaluate. PHYSICAL EXAMINATION: VITAL SIGNS: Temperature 98.2, pulse 109, respirations 16, blood pressure 117/57, O2 saturation 95% on 35% FiO2 per high-flow nasal cannula. The patient weighs 73.4 kg. SKIN: [place], warm, and dry. EYES: Sclerae clear. No xanthelasmas. ENT: Oral mucosa is pink and moist. No jugular venous distention or carotid bruits. CHEST: Respirations are even and slightly labored. There are bibasilar crackles noted and overall poor air exchange. HEART: Irregular rate and rhythm. Normal S1, S2. ABDOMEN: Soft, nontender. MUSCULOSKELETAL: Equal muscle strength in upper and lower extremities bilaterally against resistance. EXTREMITIES: Peripheral pulses palpable. No clubbing or cyanosis noted. PATIENT'S NAME: LEISA PRATER [facility] AGE: 75 Y [address] ROOM: [place] [address] LOCATION: [facility] ADMIT DATE: 10/31/2016 Consultation DISCHARGE DATE: FAMILY PHYSICIAN: PHYSICIAN, NO ATTENDING PHYSICIAN: JESSIE CERRATO V Does have mild lower extremity edema present. PSYCH: Disoriented x3. Confused and teary and calling out for nursing staff. IMPRESSION AND PLAN: Per Dr. Becker. 1. Recent silent myocardial infarction. 2. Nonobstructive coronary artery disease. Currently status post heart catheterization without intervention, with findings as noted in the HPI. 3. Paroxysmal atrial fibrillation. Currently continues in atrial fibrillation without rapid ventricular response. She is on a heparin drip and beta-angel. 4. Questionable anoxic brain injury. 5. Acute hypoxic respiratory failure. Continues on high-flow nasal cannula. 6. Acute congestive heart failure with fluid overload. Continue to diurese with IV Lasix. 7. Hypokalemia. Currently being replaced. We will continue to monitor, evaluate, and treat as appropriate. Thank you for this consult. Thank you for allowing [facility] to interact in the care of the patient. YEFRI ANAND APRN FOR MD CHARMAINE OQUENDO/modl /[id number] d: 11/07/16 1629 t: 11/28/16 0820, CONSULTATION REPORT
--- NOTE | ~2016-10-31 | CON ---
PATIENT'S NAME: LEISA PRATER [facility] AGE: 75 Y [address] [facility] [id number] [facility] [address] LOCATION: GICU ADMIT DATE: 10/31/2016 Consultation DISCHARGE DATE: FAMILY PHYSICIAN: PHYSICIAN, NO ATTENDING PHYSICIAN: JESSIE CERRATO V This is a consult for Dr. Prince. HISTORY OF PRESENT ILLNESS: This 75-year-old lady is referred for rehab evaluation, GIRP evaluation, admitted on 10/31/2016. She was found initially obtunded by her , was not breathing well, and was reportedly intubated in the field, and exhibited some twitching, not voluntarily able to communicate and was not having any involuntary convulsions, but she was reported to be very tired and sleepy. She does have a history of smoking and is on nicotine gum. Her Accu-Cheks initially were 134. Initial evaluation reportedly was as follows. 1. Acute hypoxia. 2. Possible encephalopathy. 3. Borderline hypotensive. 4. DVT prophylaxis. NEUROLOGIC EXAMINATION: On 11/14/2016, she was seen by myself, alert, not well oriented to place and person, not even herself. She could say her 's full name but not herself. She is not oriented to time also. She does not make eye contact, keeps her eyes closed. Does talk. Her voice is clear, but she does not make sense. Always, she takes long time to answer and usually she will answer one word, not related, usually a word of "am", and she does not complete it. Her voice is clear and not wet. Pupils are reacting equally and regularly. Does not seem to be well aware of her surroundings. She can move all 4. Cranial nerves 2 through 12 are within normal limits. She does not seem to be convulsing. Her tongue and soft palate are moving symmetrical, and she has no facial droop. Deep tendon reflexes are present and equal throughout. Muscle strength is about 4- to 4 over 5 throughout. She has no neck rigidity at the present time. VITAL SIGNS: Vitals are as follows: Blood pressure 95/55, temperature 99.9 to 98.8, pulse 84, respiration rate about 20. She is 5 feet 5 inches and weighs 79.8 kg. MEDICATIONS: She is on the following medications: PATIENT'S NAME: LEISA PRATER [facility] AGE: 75 Y [address] [place]OM: [id number] [address] LOCATION: GICU ADMIT DATE: 10/31/2016 Consultation DISCHARGE DATE: FAMILY PHYSICIAN: PHYSICIAN, NO ATTENDING PHYSICIAN: JESSIE CERRATO V 1. Activase. 2. Protonix. 3. Zinc oxide. 4. Carafate. 5. Lactinex. 6. Cholestyramine. 7. Dilantin. 8. Depakote. 9. Ativan. 10. Belladonna and opium. 11. Risperdal. 12. Magnesium oxide. 13. Lisinopril. 14. Lipitor. 15. Aspirin. 16. Tylenol. 17. Albuterol sulfate. 18. NaCl 0.9%. ASSESSMENT AND PLAN: The present time, she can walk up to 110 to 115 feet with front-wheeled walker and minimum television production assistant of 2 with cuing. I feel that this lady is a good candidate for rehab if she does not progress well enough to go home; however, she will need to be on speech therapy for a while. She is confused and at high risk of falling and getting into trouble. She should not drive until she is re-evaluated. Keep her O2 saturation 89 and above. We will give her prophylactic YONAS's knee high with [place]. All the above was discussed with Dr. Prince, and I will watch her. If I have opening and she is still not able to go home, I will be happy to take her for intensive rehabilitation. Thank you for this referral. MD DERIC WORKMAN/reena /[id number] d: 11/14/162143 t: 11/15/16 1630, CONSULTATION REPORT
[2016-10-31 19:57] LABS: LACTATE 2.5 mEq/L (0.50-1.60); PCO2 38 mmHg (35-45); PO2 140 mmHg (80-90)
[2016-10-31 20:06] LABS: BASOPHIL # 0.1 K/uL (0.0-0.2); EOSINOPHIL # 0.4 K/uL (0.0-0.5); EOSINOPHIL % 5.1 %; HEMATOCRIT 45.5 % (33.0-46.0); HEMOGLOBIN 14.4 g/dL (10.0-15.0); IMMATURE GRANULOCYTE % 0.4 %; LYMPHOCYTE # 1.2 K/uL (0.8-4.0); LYMPHOCYTE % 15.9 %; MCH 29.7 pg (27.0-34.0); MCHC 31.6 gm/dL (32.0-36.5); MCV 93.8 fl (83.0-98.0); MONOCYTE # 0.3 K/uL (0.0-1.0); MONOCYTE % 3.6 %; MPV 9.1 fl (9.4-12.4); NEUTROPHIL # (ANC) 5.4 K/uL (1.8-7.8); NRBC % 0 /100WBC (0-0.00); PLATELET COUNT 353 K/uL (150-450); RBC 4.85 M/uL (3.50-5.50); RDW-CV 13.4 % (11.9-14.6); WBC 7.2 K/uL (4.0-11.0)
[2016-10-31 20:13] LABS: INR - (THERAPEUTIC) 1.08 (0.92-1.07); PROTIME 11.3 SECONDS (9.8-11.4); PTT 26 SECONDS (25-32)
[2016-10-31 20:33] LABS: BLOOD URINE NEGATIVE /UL (NEGATIVE); COLOR URINE AMBER (YELLOW); GLUCOSE URINE NEGATIVE (NEGATIVE); KETONE URINE NEGATIVE (NEGATIVE); LEUKOCYTES URINE 25 /UL (NEGATIVE); NITRITE URINE POSITIVE (NEGATIVE); PROTEIN URINE 15 mg/dL (NEGATIVE); TURBIDITY URINE CLEAR (CLEAR); UROBILINOGEN URINE 4 mg/dL (NORMAL)
[2016-10-31 20:38] LABS: ALBUMIN 3.5 gm/dL (3.5-5.0); ALK PHOS 76 IU/L (33-138); ALT 18 IU/L (12-78); BLOOD UREA NITROGEN 11 mg/dL (6-24); CALCIUM 7.9 mg/dL (8.5-10.5); CHLORIDE 113 mMol/L (96-110); CO2 22 mMol/L (22-32); CREATININE 0.8 mg/dL (0.5-1.1); ESTIMATED GFR (MDRD EQUATION) > 60; SODIUM 143 mMol/L (135-145); TOTAL BILIRUBIN 0.5 mg/dL (0.0-1.5); TOTAL PROTEIN 7.1 g/dL (6.0-8.4)
[2016-10-31 20:39] LABS: ANION GAP 12.3 (10.0-19.0); AST 30 IU/L (10-40); CPK 81 IU/L (21-215)
[2016-10-31 20:40] LABS: POTASSIUM 4.3 mMol/L (3.7-5.1)
[2016-10-31 20:48] LABS: BACTERIA URINE RARE (NEGATIVE); EPITHELIAL URINE 0-2 #/HPF (NEGATIVE); MUCUS URINE NEGATIVE (NEGATIVE); RBC URINE RARE #/HPF (NEGATIVE); WBC URINE 0-2 #/HPF (NEGATIVE)
[2016-10-31 20:55] LABS: OPIATES NEGATIVE (NEGATIVE)
[2016-10-31 20:56] LABS: AMPHETAMINE NEGATIVE (NEGATIVE); BARBITURATE NEGATIVE (NEGATIVE); COCAINE NEGATIVE (NEGATIVE)
[2016-11-01 05:35] LABS: BASOPHIL # 0.1 K/uL (0.0-0.2); BASOPHIL % 0.5 %; EOSINOPHIL # 0.1 K/uL (0.0-0.5); EOSINOPHIL % 0.4 %; HEMATOCRIT 42.7 % (33.0-46.0); HEMOGLOBIN 13.6 g/dL (10.0-15.0); IMMATURE GRANULOCYTE # 0.1 K/uL (0.0-0.3); IMMATURE GRANULOCYTE % 0.5 %; LYMPHOCYTE # 1.1 K/uL (0.8-4.0); MCH 29.4 pg (27.0-34.0); MCHC 31.9 gm/dL (32.0-36.5); MCV 92.2 fl (83.0-98.0); MONOCYTE # 0.7 K/uL (0.0-1.0); MONOCYTE % 5.1 %; MPV 8.9 fl (9.4-12.4); NEUTROPHIL # (ANC) 12.1 K/uL (1.8-7.8); NEUTROPHIL % 85.5 %; NRBC % 0 /100WBC (0-0.00); PLATELET COUNT 333 K/uL (150-450); RBC 4.63 M/uL (3.50-5.50); RDW-CV 13.7 % (11.9-14.6); WBC 14.2 K/uL (4.0-11.0)
[2016-11-01 05:54] LABS: ALBUMIN 3.5 gm/dL (3.5-5.0); ALK PHOS 73 IU/L (33-138); ALT 18 IU/L (12-78); ANION GAP 16.5 (10.0-19.0); AST 26 IU/L (10-40); BLOOD UREA NITROGEN 13 mg/dL (6-24); CALCIUM 7.6 mg/dL (8.5-10.5); CHLORIDE 114 mMol/L (96-110); CO2 17 mMol/L (22-32); CREATININE 0.6 mg/dL (0.5-1.1); ESTIMATED GFR (MDRD EQUATION) > 60; MAGNESIUM 1.9 mg/dL (1.8-2.6); PHOSPHORUS 2.3 mg/dL (2.5-4.9); POTASSIUM 3.5 mMol/L (3.7-5.1); SODIUM 144 mMol/L (135-145); TOTAL BILIRUBIN 0.3 mg/dL (0.0-1.5); TOTAL PROTEIN 6.7 g/dL (6.0-8.4)
[2016-11-01] MEDS ORDERED: PRILOSEC20 MG PO (09:32)
[2016-11-01] MEDS ORDERED: ASCORBIC ACID500 MG PO (09:33)
[2016-11-01] MEDS ORDERED: GLUCOSAMINE S1000 M1 PO (09:33)
[2016-11-01] MEDS ORDERED: EYE VITAMIN-MI1 EACH PO (09:34)
[2016-11-01] MEDS ORDERED: CALCIUM 600 +1 EAC6 PO (09:34)
[2016-11-01] MEDS ORDERED: VITAMIN D-32000 UNI1 PO (09:35)
[2016-11-01] MEDS ORDERED: FOSAMAX70 MG PO (09:35)
[2016-11-01] MEDS ORDERED: CYMBALTA60 MG PO (09:36)
[2016-11-01] MEDS ORDERED: DESYREL50 MG PO (09:36)
[2016-11-01] MEDS ORDERED: MYRBETRIQ50 MG PO (09:36)
[2016-11-01 09:46] LABS: CPK 59 IU/L (21-215)
[2016-11-02 06:01] LABS: BASOPHIL % 0.3 %; EOSINOPHIL # 0.1 K/uL (0.0-0.5); EOSINOPHIL % 0.7 %; HEMATOCRIT 38.5 % (33.0-46.0); HEMOGLOBIN 12.4 g/dL (10.0-15.0); IMMATURE GRANULOCYTE # 0.1 K/uL (0.0-0.3); IMMATURE GRANULOCYTE % 0.7 %; LYMPHOCYTE # 1.5 K/uL (0.8-4.0); LYMPHOCYTE % 10.5 %; MCH 29.6 pg (27.0-34.0); MCHC 32.2 gm/dL (32.0-36.5); MCV 91.9 fl (83.0-98.0); MONOCYTE # 1.1 K/uL (0.0-1.0); MONOCYTE % 7.5 %; MPV 9.2 fl (9.4-12.4); NEUTROPHIL # (ANC) 11.4 K/uL (1.8-7.8); NEUTROPHIL % 80.3 %; NRBC % 0 /100WBC (0-0.00); PLATELET COUNT 268 K/uL (150-450); RBC 4.19 M/uL (3.50-5.50); RDW-CV 13.8 % (11.9-14.6); WBC 14.2 K/uL (4.0-11.0)
[2016-11-02 06:16] LABS: ALBUMIN 2.7 gm/dL (3.5-5.0); BLOOD UREA NITROGEN 12 mg/dL (6-24); CO2 20 mMol/L (22-32); CREATININE 0.5 mg/dL (0.5-1.1); ESTIMATED GFR (MDRD EQUATION) > 60; SODIUM 145 mMol/L (135-145)
[2016-11-02 06:21] LABS: ANION GAP 13.5 (10.0-19.0); CALCIUM 6.5 mg/dL (8.5-10.5); CHLORIDE 116 mMol/L (96-110); PHOSPHORUS 1.8 mg/dL (2.5-4.9); POTASSIUM 4.5 mMol/L (3.7-5.1)
[2016-11-03 06:28] LABS: BASOPHIL % 0.5 %; EOSINOPHIL # 0.9 K/uL (0.0-0.5); EOSINOPHIL % 10.6 %; HEMATOCRIT 35.1 % (33.0-46.0); HEMOGLOBIN 11.4 g/dL (10.0-15.0); IMMATURE GRANULOCYTE % 0.5 %; MCH 30.5 pg (27.0-34.0); MCHC 32.5 gm/dL (32.0-36.5); MCV 93.9 fl (83.0-98.0); MONOCYTE # 0.5 K/uL (0.0-1.0); MONOCYTE % 5.8 %; MPV 9.7 fl (9.4-12.4); NEUTROPHIL # (ANC) 6.2 K/uL (1.8-7.8); NEUTROPHIL % 71.6 %; NRBC % 0 /100WBC (0-0.00); PLATELET COUNT 215 K/uL (150-450); RBC 3.74 M/uL (3.50-5.50); RDW-CV 13.8 % (11.9-14.6); WBC 8.7 K/uL (4.0-11.0)
[2016-11-03 06:49] LABS: ALBUMIN 2.5 gm/dL (3.5-5.0); BLOOD UREA NITROGEN 6 mg/dL (6-24); CHLORIDE 115 mMol/L (96-110); CO2 21 mMol/L (22-32); CREATININE 0.4 mg/dL (0.5-1.1); ESTIMATED GFR (MDRD EQUATION) > 60; SODIUM 145 mMol/L (135-145)
[2016-11-03 06:51] LABS: ANION GAP 11.6 (10.0-19.0); CALCIUM 6.6 mg/dL (8.5-10.5); PHOSPHORUS 0.9 mg/dL (2.5-4.9); POTASSIUM 2.6 mMol/L (3.7-5.1)
[2016-11-04 05:11] LABS: HEMATOCRIT 38.1 % (33.0-46.0); HEMOGLOBIN 12.3 g/dL (10.0-15.0); MCH 30.3 pg (27.0-34.0); MCHC 32.3 gm/dL (32.0-36.5); MCV 93.8 fl (83.0-98.0); MPV 9.9 fl (9.4-12.4); RBC 4.06 M/uL (3.50-5.50); RDW-CV 13.9 % (11.9-14.6); WBC 13.9 K/uL (4.0-11.0)
[2016-11-04 05:14] LABS: PLATELET COUNT 364 K/uL (150-450)
[2016-11-04 05:22] LABS: ALBUMIN 3.3 gm/dL (3.5-5.0); ANION GAP 15.1 (10.0-19.0); BLOOD UREA NITROGEN 2 mg/dL (6-24); CALCIUM 7.1 mg/dL (8.5-10.5); CHLORIDE 115 mMol/L (96-110); CO2 21 mMol/L (22-32); CREATININE 0.6 mg/dL (0.5-1.1); ESTIMATED GFR (MDRD EQUATION) > 60; PHOSPHORUS 1.7 mg/dL (2.5-4.9); POTASSIUM 3.1 mMol/L (3.7-5.1); SODIUM 148 mMol/L (135-145)
[2016-11-04 05:56] LABS: ABSOLUTE NEUTROPHIL CT (ANC) 12.9 K/uL (1.8-7.8); BANDED NEUTROPHIL # 0.8 K/uL (0.0-0.1); BANDED NEUTROPHILS % 6 %; LYMPHOCYTE # 0.7 K/uL (0.8-4.0); LYMPHOCYTE % 5 %; SEGMENTED NEUTROPHIL # 12.1 K/uL (1.8-7.8); SEGMENTED NEUTROPHIL % 87 %
[2016-11-05 05:46] LABS: BASOPHIL % 0.3 %; HEMATOCRIT 39.5 % (33.0-46.0); HEMOGLOBIN 13.1 g/dL (10.0-15.0); IMMATURE GRANULOCYTE # 0.1 K/uL (0.0-0.3); IMMATURE GRANULOCYTE % 0.8 %; LYMPHOCYTE # 1.3 K/uL (0.8-4.0); LYMPHOCYTE % 9.2 %; MCH 30.3 pg (27.0-34.0); MCHC 33.2 gm/dL (32.0-36.5); MCV 91.4 fl (83.0-98.0); MONOCYTE # 1.1 K/uL (0.0-1.0); MONOCYTE % 7.8 %; MPV 9.8 fl (9.4-12.4); NEUTROPHIL # (ANC) 11.8 K/uL (1.8-7.8); NEUTROPHIL % 81.9 %; NRBC % 0 /100WBC (0-0.00); PLATELET COUNT 367 K/uL (150-450); RBC 4.32 M/uL (3.50-5.50); WBC 14.4 K/uL (4.0-11.0)
[2016-11-05 06:01] LABS: ALBUMIN 2.9 gm/dL (3.5-5.0); ANION GAP 11.8 (10.0-19.0); BLOOD UREA NITROGEN 6 mg/dL (6-24); CALCIUM 7.6 mg/dL (8.5-10.5); CHLORIDE 114 mMol/L (96-110); CO2 23 mMol/L (22-32); CREATININE 0.6 mg/dL (0.5-1.1); ESTIMATED GFR (MDRD EQUATION) > 60; PHOSPHORUS 1.1 mg/dL (2.5-4.9); POTASSIUM 2.8 mMol/L (3.7-5.1); SODIUM 146 mMol/L (135-145)
[2016-11-05 21:18] LABS: BICARBONATE 24.1 mmol/L (18.0-23.0)
[2016-11-05 21:28] LABS: PCO2 24 mmHg (35-45); PO2 53 mmHg (80-90)
[2016-11-05 22:37] LABS: BLOOD UREA NITROGEN 6 mg/dL (6-24); CALCIUM 7.8 mg/dL (8.5-10.5); CHLORIDE 114 mMol/L (96-110); CO2 21 mMol/L (22-32); CREATININE 0.4 mg/dL (0.5-1.1); ESTIMATED GFR (MDRD EQUATION) > 60
[2016-11-05 22:40] LABS: ANION GAP 13.8 (10.0-19.0); PHOSPHORUS 0.8 mg/dL (2.5-4.9); POTASSIUM 2.8 mMol/L (3.7-5.1); SODIUM 146 mMol/L (135-145)
[2016-11-05 22:53] LABS: INR - (THERAPEUTIC) 1.33 (0.92-1.07)
[2016-11-06 03:26] LABS: BASOPHIL # 0.1 K/uL (0.0-0.2); BASOPHIL % 0.3 %; EOSINOPHIL % 0.1 %; HEMATOCRIT 38.4 % (33.0-46.0); HEMOGLOBIN 12.3 g/dL (10.0-15.0); IMMATURE GRANULOCYTE # 0.2 K/uL (0.0-0.3); IMMATURE GRANULOCYTE % 1.2 %; LYMPHOCYTE % 6.5 %; MCH 29.4 pg (27.0-34.0); MCV 91.6 fl (83.0-98.0); MONOCYTE # 1.1 K/uL (0.0-1.0); MONOCYTE % 7.2 %; MPV 9.5 fl (9.4-12.4); NEUTROPHIL % 84.7 %; NRBC % 0 /100WBC (0-0.00); PLATELET COUNT 352 K/uL (150-450); RBC 4.19 M/uL (3.50-5.50); WBC 15.3 K/uL (4.0-11.0)
[2016-11-06 03:44] LABS: ANION GAP 13.3 (10.0-19.0); BLOOD UREA NITROGEN 7 mg/dL (6-24); CALCIUM 7.9 mg/dL (8.5-10.5); CHLORIDE 112 mMol/L (96-110); CO2 24 mMol/L (22-32); CREATININE 0.6 mg/dL (0.5-1.1); ESTIMATED GFR (MDRD EQUATION) > 60; POTASSIUM 3.3 mMol/L (3.7-5.1); SODIUM 146 mMol/L (135-145)
[2016-11-07 06:22] LABS: BASOPHIL # 0.1 K/uL (0.0-0.2); BASOPHIL % 0.5 %; EOSINOPHIL # 0.3 K/uL (0.0-0.5); HEMATOCRIT 40.5 % (33.0-46.0); HEMOGLOBIN 13.4 g/dL (10.0-15.0); IMMATURE GRANULOCYTE # 0.4 K/uL (0.0-0.3); LYMPHOCYTE # 2.1 K/uL (0.8-4.0); LYMPHOCYTE % 15.5 %; MCHC 33.1 gm/dL (32.0-36.5); MCV 90.8 fl (83.0-98.0); MONOCYTE % 7.4 %; NEUTROPHIL # (ANC) 9.9 K/uL (1.8-7.8); NEUTROPHIL % 71.6 %; NRBC % 0 /100WBC (0-0.00); PLATELET COUNT 393 K/uL (150-450); RBC 4.46 M/uL (3.50-5.50); RDW-CV 13.9 % (11.9-14.6); WBC 13.8 K/uL (4.0-11.0)
[2016-11-07 06:23] LABS: ALBUMIN 2.8 gm/dL (3.5-5.0); BLOOD UREA NITROGEN 9 mg/dL (6-24); CALCIUM 8.1 mg/dL (8.5-10.5); CHLORIDE 108 mMol/L (96-110); CO2 26 mMol/L (22-32); CREATININE 0.6 mg/dL (0.5-1.1); ESTIMATED GFR (MDRD EQUATION) > 60; MAGNESIUM 1.9 mg/dL (1.8-2.6); SODIUM 143 mMol/L (135-145)
[2016-11-07 06:26] LABS: ANION GAP 11.7 (10.0-19.0); PHOSPHORUS 1.2 mg/dL (2.5-4.9); POTASSIUM 2.7 mMol/L (3.7-5.1)
[2016-11-08 05:30] LABS: HEMOGLOBIN 13.3 g/dL (10.0-15.0); MCHC 32.4 gm/dL (32.0-36.5); MCV 92.6 fl (83.0-98.0); MPV 10.2 fl (9.4-12.4); PLATELET COUNT 431 K/uL (150-450); RBC 4.43 M/uL (3.50-5.50); RDW-CV 14.3 % (11.9-14.6); WBC 11.4 K/uL (4.0-11.0)
[2016-11-08 05:41] LABS: ANION GAP 12.4 (10.0-19.0); CALCIUM 8.5 mg/dL (8.5-10.5); CHLORIDE 111 mMol/L (96-110); CO2 25 mMol/L (22-32); CREATININE 0.6 mg/dL (0.5-1.1); ESTIMATED GFR (MDRD EQUATION) > 60; MAGNESIUM 2.1 mg/dL (1.8-2.6); POTASSIUM 3.4 mMol/L (3.7-5.1); SODIUM 145 mMol/L (135-145)
[2016-11-08 05:50] LABS: BLOOD UREA NITROGEN 14 mg/dL (6-24)
[2016-11-08 06:11] LABS: ABSOLUTE NEUTROPHIL CT (ANC) 7.9 K/uL (1.8-7.8); BANDED NEUTROPHIL # 0.7 K/uL (0.0-0.1); BANDED NEUTROPHILS % 6 %; LYMPHOCYTE # 2.3 K/uL (0.8-4.0); LYMPHOCYTE % 20 %; MONOCYTE # 0.8 K/uL (0.0-1.0); SEGMENTED NEUTROPHIL # 7.2 K/uL (1.8-7.8); SEGMENTED NEUTROPHIL % 63 %
[2016-11-09 04:23] LABS: HEMOGLOBIN 10.4 g/dL (10.0-15.0); MCH 30.1 pg (27.0-34.0); MCHC 32.1 gm/dL (32.0-36.5); MCV 93.9 fl (83.0-98.0); MPV 10.1 fl (9.4-12.4); PLATELET COUNT 450 K/uL (150-450); RBC 3.45 M/uL (3.50-5.50); RDW-CV 14.5 % (11.9-14.6)
[2016-11-09 04:24] LABS: HEMATOCRIT 32.4 % (33.0-46.0); WBC 17.4 K/uL (4.0-11.0)
[2016-11-09 05:51] LABS: BANDED NEUTROPHIL # 0.2 K/uL (0.0-0.1); BANDED NEUTROPHILS % 1 %; LYMPHOCYTE # 1.7 K/uL (0.8-4.0); LYMPHOCYTE % 10 %; MONOCYTE # 0.2 K/uL (0.0-1.0); SEGMENTED NEUTROPHIL # 14.8 K/uL (1.8-7.8); SEGMENTED NEUTROPHIL % 85 %
[2016-11-09 13:10] LABS: HEMATOCRIT 24.7 % (33.0-46.0); MCH 30.7 pg (27.0-34.0); MCHC 32.4 gm/dL (32.0-36.5); MCV 94.6 fl (83.0-98.0); MPV 10.2 fl (9.4-12.4); PLATELET COUNT 396 K/uL (150-450); RBC 2.61 M/uL (3.50-5.50); RDW-CV 14.4 % (11.9-14.6); WBC 26.2 K/uL (4.0-11.0)
[2016-11-09 13:45] LABS: BANDED NEUTROPHIL # 3.7 K/uL (0.0-0.1); BANDED NEUTROPHILS % 14 %; MONOCYTE # 0.5 K/uL (0.0-1.0); SEGMENTED NEUTROPHIL # 17.3 K/uL (1.8-7.8); SEGMENTED NEUTROPHIL % 66 %
[2016-11-09 13:46] LABS: LYMPHOCYTE # 1.8 K/uL (0.8-4.0); LYMPHOCYTE % 7 %
[2016-11-09 19:25] LABS: CREATININE 0.5 mg/dL (0.5-1.1)
[2016-11-09 19:27] LABS: ESTIMATED GFR (MDRD EQUATION) > 60
[2016-11-10 00:32] LABS: HEMOGLOBIN 10.6 g/dL (10.0-15.0); MCHC 34.3 gm/dL (32.0-36.5); MCV 90.1 fl (83.0-98.0); MPV 10.1 fl (9.4-12.4); PLATELET COUNT 324 K/uL (150-450); RDW-CV 14.6 % (11.9-14.6)
[2016-11-10 00:33] LABS: HEMATOCRIT 30.9 % (33.0-46.0); MCH 30.9 pg (27.0-34.0); RBC 3.43 M/uL (3.50-5.50); WBC 23.5 K/uL (4.0-11.0)
[2016-11-10 01:02] LABS: ABSOLUTE NEUTROPHIL CT (ANC) 18.1 K/uL (1.8-7.8); BANDED NEUTROPHIL # 3.1 K/uL (0.0-0.1); BANDED NEUTROPHILS % 13 %; LYMPHOCYTE # 1.4 K/uL (0.8-4.0); LYMPHOCYTE % 6 %; MONOCYTE # 1.4 K/uL (0.0-1.0); SEGMENTED NEUTROPHIL % 64 %
[2016-11-10 06:19] LABS: ANION GAP 13.7 (10.0-19.0); BLOOD UREA NITROGEN 15 mg/dL (6-24); CALCIUM 7.9 mg/dL (8.5-10.5); CHLORIDE 108 mMol/L (96-110); CO2 24 mMol/L (22-32); CREATININE 0.6 mg/dL (0.5-1.1); ESTIMATED GFR (MDRD EQUATION) > 60; POTASSIUM 4.7 mMol/L (3.7-5.1); SODIUM 141 mMol/L (135-145)
[2016-11-10 06:22] LABS: HEMATOCRIT 29.3 % (33.0-46.0); HEMOGLOBIN 10.1 g/dL (10.0-15.0); MCH 31.4 pg (27.0-34.0); MCHC 34.5 gm/dL (32.0-36.5); MPV 10.5 fl (9.4-12.4); PLATELET COUNT 330 K/uL (150-450); RBC 3.22 M/uL (3.50-5.50); RDW-CV 14.8 % (11.9-14.6); WBC 24.8 K/uL (4.0-11.0)
[2016-11-10 06:50] LABS: ABSOLUTE NEUTROPHIL CT (ANC) 20.1 K/uL (1.8-7.8); BANDED NEUTROPHILS % 4 %; LYMPHOCYTE % 16 %; MONOCYTE # 0.7 K/uL (0.0-1.0); SEGMENTED NEUTROPHIL # 19.1 K/uL (1.8-7.8); SEGMENTED NEUTROPHIL % 77 %
[2016-11-11 05:00] LABS: ANION GAP 12.3 (10.0-19.0); BLOOD UREA NITROGEN 12 mg/dL (6-24); CALCIUM 8.1 mg/dL (8.5-10.5); CHLORIDE 107 mMol/L (96-110); CO2 26 mMol/L (22-32); CREATININE 0.6 mg/dL (0.5-1.1); ESTIMATED GFR (MDRD EQUATION) > 60; MAGNESIUM 2.4 mg/dL (1.8-2.6); PHOSPHORUS 3.9 mg/dL (2.5-4.9); POTASSIUM 4.3 mMol/L (3.7-5.1); SODIUM 141 mMol/L (135-145)
[2016-11-11 05:22] LABS: HEMATOCRIT 27.6 % (33.0-46.0); HEMOGLOBIN 9.3 g/dL (10.0-15.0); MCH 31.4 pg (27.0-34.0); MCHC 33.7 gm/dL (32.0-36.5); MCV 93.2 fl (83.0-98.0); MPV 10.5 fl (9.4-12.4); PLATELET COUNT 332 K/uL (150-450); RBC 2.96 M/uL (3.50-5.50); RDW-CV 14.7 % (11.9-14.6)
[2016-11-11 05:24] LABS: WBC 23.7 K/uL (4.0-11.0)
[2016-11-11 06:29] LABS: BANDED NEUTROPHIL # 1.2 K/uL (0.0-0.1); BANDED NEUTROPHILS % 5 %; LYMPHOCYTE # 1.7 K/uL (0.8-4.0); LYMPHOCYTE % 7 %; MONOCYTE # 1.7 K/uL (0.0-1.0)
[2016-11-11 06:30] LABS: ABSOLUTE NEUTROPHIL CT (ANC) 19.9 K/uL (1.8-7.8); SEGMENTED NEUTROPHIL # 18.7 K/uL (1.8-7.8); SEGMENTED NEUTROPHIL % 79 %
[2016-11-11 18:09] LABS: HEMATOCRIT 29.5 % (33.0-46.0); HEMOGLOBIN 9.8 g/dL (10.0-15.0)
[2016-11-12 04:27] LABS: HEMATOCRIT 29.3 % (33.0-46.0); HEMOGLOBIN 9.6 g/dL (10.0-15.0); MCH 31.2 pg (27.0-34.0); MCHC 32.8 gm/dL (32.0-36.5); MCV 95.1 fl (83.0-98.0); MPV 10.5 fl (9.4-12.4); PLATELET COUNT 366 K/uL (150-450); RBC 3.08 M/uL (3.50-5.50); RDW-CV 14.8 % (11.9-14.6); WBC 24.6 K/uL (4.0-11.0)
[2016-11-12 04:29] LABS: ALBUMIN 2.5 gm/dL (3.5-5.0); ANION GAP 11.6 (10.0-19.0); BLOOD UREA NITROGEN 17 mg/dL (6-24); CALCIUM 8.4 mg/dL (8.5-10.5); CHLORIDE 108 mMol/L (96-110); CO2 27 mMol/L (22-32); CREATININE 0.6 mg/dL (0.5-1.1); ESTIMATED GFR (MDRD EQUATION) > 60; PHOSPHORUS 3.8 mg/dL (2.5-4.9); POTASSIUM 4.6 mMol/L (3.7-5.1); SODIUM 142 mMol/L (135-145)
[2016-11-12 05:40] LABS: BANDED NEUTROPHIL # 1.2 K/uL (0.0-0.1); BANDED NEUTROPHILS % 5 %; LYMPHOCYTE # 2.7 K/uL (0.8-4.0); LYMPHOCYTE % 11 %
[2016-11-12 05:41] LABS: ABSOLUTE NEUTROPHIL CT (ANC) 18.5 K/uL (1.8-7.8); SEGMENTED NEUTROPHIL # 17.2 K/uL (1.8-7.8); SEGMENTED NEUTROPHIL % 70 %
[2016-11-12 16:05] LABS: BILIRUBIN URINE NEGATIVE (NEGATIVE); BLOOD URINE NEGATIVE /UL (NEGATIVE); COLOR URINE YELLOW (YELLOW); GLUCOSE URINE NEGATIVE (NEGATIVE); KETONE URINE 15 mg/dL (NEGATIVE); LEUKOCYTES URINE NEGATIVE /UL (NEGATIVE); NITRITE URINE NEGATIVE (NEGATIVE); PH URINE 6.5 (4.0-8.0); PROTEIN URINE NEGATIVE (NEGATIVE); TURBIDITY URINE CLEAR (CLEAR); UROBILINOGEN URINE NORMAL (NORMAL)
[2016-11-13 05:11] LABS: ALBUMIN 2.4 gm/dL (3.5-5.0); ANION GAP 12.1 (10.0-19.0); BLOOD UREA NITROGEN 19 mg/dL (6-24); CALCIUM 8.3 mg/dL (8.5-10.5); CHLORIDE 106 mMol/L (96-110); CO2 28 mMol/L (22-32); CREATININE 0.6 mg/dL (0.5-1.1); ESTIMATED GFR (MDRD EQUATION) > 60; PHOSPHORUS 3.5 mg/dL (2.5-4.9); POTASSIUM 4.1 mMol/L (3.7-5.1); SODIUM 142 mMol/L (135-145)
[2016-11-13 05:16] LABS: HEMATOCRIT 26.5 % (33.0-46.0); HEMOGLOBIN 8.7 g/dL (10.0-15.0); MCH 31.8 pg (27.0-34.0); MCHC 32.8 gm/dL (32.0-36.5); MCV 96.7 fl (83.0-98.0); MPV 9.8 fl (9.4-12.4); PLATELET COUNT 390 K/uL (150-450); RBC 2.74 M/uL (3.50-5.50); RDW-CV 15.2 % (11.9-14.6)
[2016-11-13 05:17] LABS: WBC 22.8 K/uL (4.0-11.0)
[2016-11-13 06:05] LABS: ABSOLUTE NEUTROPHIL CT (ANC) 15.7 K/uL (1.8-7.8); BANDED NEUTROPHIL # 0.7 K/uL (0.0-0.1); BANDED NEUTROPHILS % 3 %; LYMPHOCYTE # 4.1 K/uL (0.8-4.0); LYMPHOCYTE % 18 %; MONOCYTE # 2.1 K/uL (0.0-1.0); SEGMENTED NEUTROPHIL # 15.1 K/uL (1.8-7.8); SEGMENTED NEUTROPHIL % 66 %
[2016-11-14 03:39] LABS: ALBUMIN 2.5 gm/dL (3.5-5.0); ANION GAP 11.2 (10.0-19.0); BLOOD UREA NITROGEN 26 mg/dL (6-24); CALCIUM 8.7 mg/dL (8.5-10.5); CHLORIDE 105 mMol/L (96-110); CO2 28 mMol/L (22-32); CREATININE 0.6 mg/dL (0.5-1.1); ESTIMATED GFR (MDRD EQUATION) > 60; MAGNESIUM 2.3 mg/dL (1.8-2.6); PHOSPHORUS 4.1 mg/dL (2.5-4.9); POTASSIUM 4.2 mMol/L (3.7-5.1); SODIUM 140 mMol/L (135-145)
[2016-11-14 04:06] LABS: HEMATOCRIT 27.5 % (33.0-46.0); HEMOGLOBIN 8.9 g/dL (10.0-15.0); MCH 31.6 pg (27.0-34.0); MCHC 32.4 gm/dL (32.0-36.5); MCV 97.5 fl (83.0-98.0); MPV 10.5 fl (9.4-12.4); PLATELET COUNT 409 K/uL (150-450); RBC 2.82 M/uL (3.50-5.50); RDW-CV 15.9 % (11.9-14.6)
[2016-11-14 04:08] LABS: WBC 22.5 K/uL (4.0-11.0)
[2016-11-14 05:18] LABS: ABSOLUTE NEUTROPHIL CT (ANC) 14.9 K/uL (1.8-7.8); BANDED NEUTROPHILS % 9 %; LYMPHOCYTE # 2.3 K/uL (0.8-4.0); LYMPHOCYTE % 10 %; SEGMENTED NEUTROPHIL # 12.8 K/uL (1.8-7.8); SEGMENTED NEUTROPHIL % 57 %
[2016-11-16 03:38] LABS: ALBUMIN 2.5 gm/dL (3.5-5.0); ANION GAP 11.9 (10.0-19.0); BLOOD UREA NITROGEN 15 mg/dL (6-24); CALCIUM 8.4 mg/dL (8.5-10.5); CHLORIDE 107 mMol/L (96-110); CO2 28 mMol/L (22-32); CREATININE 0.5 mg/dL (0.5-1.1); ESTIMATED GFR (MDRD EQUATION) > 60; MAGNESIUM 2.3 mg/dL (1.8-2.6); POTASSIUM 3.9 mMol/L (3.7-5.1); SODIUM 143 mMol/L (135-145)
[2016-11-16 03:54] LABS: HEMATOCRIT 26.2 % (33.0-46.0); HEMOGLOBIN 8.5 g/dL (10.0-15.0); MCH 32.7 pg (27.0-34.0); MCHC 32.4 gm/dL (32.0-36.5); MCV 100.8 fl (83.0-98.0); MPV 10.1 fl (9.4-12.4); PLATELET COUNT 388 K/uL (150-450); RDW-CV 17.5 % (11.9-14.6); WBC 13.8 K/uL (4.0-11.0)
[2016-11-16 05:29] LABS: ABSOLUTE NEUTROPHIL CT (ANC) 9.9 K/uL (1.8-7.8); BANDED NEUTROPHIL # 0.6 K/uL (0.0-0.1); BANDED NEUTROPHILS % 4 %; LYMPHOCYTE # 1.4 K/uL (0.8-4.0); LYMPHOCYTE % 10 %; MONOCYTE # 1.1 K/uL (0.0-1.0); SEGMENTED NEUTROPHIL # 9.4 K/uL (1.8-7.8); SEGMENTED NEUTROPHIL % 68 %
== END 2016-11-17 09:38 | DRG 91 ==
LOC: GMED 19:19 → GICU 21:26
PROVIDERS: Emergency Medicine; Family Medicine; Hospitalist; Internal Medicine; Internal Medicine Cardiovascular Disease; Nurse Practitioner; Physician Assistant; Student in an Organized Health Care Education/Training Program; ADMIT Internal Medicine
DX: G93.1 Anoxic brain damage, not elsewhere classified (principal); J96.01 Acute respiratory failure with hypoxia; I21.3 ST elevation (STEMI) myocardial infarction of unspecified site; J18.9 Pneumonia, unspecified organism; I50.31 Acute diastolic (congestive) heart failure; E87.2 Acidosis; R65.10 Systemic inflammatory response syndrome (SIRS) of non-infectious origin without acute organ dysfunction; K26.9 Duodenal ulcer, unspecified as acute or chronic, without hemorrhage or perforation; I11.0 Hypertensive heart disease with heart failure; D62 Acute posthemorrhagic anemia; I47.1 Supraventricular tachycardia; F31.13 Bipolar disorder, current episode manic without psychotic features, severe; I95.9 Hypotension, unspecified; I27.2 Other secondary pulmonary hypertension; I48.0 Paroxysmal atrial fibrillation; M19.90 Unspecified osteoarthritis, unspecified site; D72.823 Leukemoid reaction; I25.10 Atherosclerotic heart disease of native coronary artery without angina pectoris; I25.5 Ischemic cardiomyopathy; E78.5 Hyperlipidemia, unspecified; E87.6 Hypokalemia; E83.51 Hypocalcemia; R56.9 Unspecified convulsions; R19.7 Diarrhea, unspecified; M79.81 Nontraumatic hematoma of soft tissue; Z87.891 Personal history of nicotine dependence; R41.0 Disorientation, unspecified; Z87.440 Personal history of urinary (tract) infections; Z96.649 Presence of unspecified artificial hip joint; H35.30 Unspecified macular degeneration; Z79.82 Long term (current) use of aspirin; Z79.899 Other long term (current) drug therapy; Z86.718 Personal history of other venous thrombosis and embolism; Z78.1 Physical restraint status; K28.9 Gastrojejunal ulcer, unspecified as acute or chronic, without hemorrhage or perforation
CPT/HCPCS: C1751; C1894; C9113; G0480; J0610; J1165; J1630; J1644; J1650; J1940; J1956; J2001; J2060; J2250; J2543; J2704; J2720; J2920; J2930; J2997; J3480; J7030; J7040; J7050; J7060; P9016; Q9967

== ENCOUNTER → 2016-10-31 | Outpatient (CLI) | payer MEDICARE ==
[~2016-10-31] MED LIST: ASCORBIC ACID500 MG PO; ASPIRIN (CHILDR81 MG PO; ATIVAN 0.5MG0.5 MG PO; CALCIUM 600 +1 EAC6 PO; CARAFATE1 GM PO; CYMBALTA60 MG PO; DESYREL50 MG PO; EYE VITAMIN-MI1 EACH PO; FEOSOL325 MG PO; FOSAMAX70 MG PO; GLUCOSAMINE S1000 M1 PO; LACTINEX (FLORA1 TAB PO; LIPITOR40 MG PO; MYRBETRIQ50 MG PO; PRILOSEC20 MG PO; PROTONIX40 MG PO; SOTALOL80 MG PO; TYLENOL325 MG PO; VITAMIN D-32000 UNI1 PO; ZESTRIL2.5 MG PO; ZYPREXA10 MG PO
== END | disposition disaster alternative care site (69) ==
LOC: GAMB 18:43
DX: I63.9 Cerebral infarction, unspecified (principal); R41.82 Altered mental status, unspecified; M19.90 Unspecified osteoarthritis, unspecified site

== ENCOUNTER 2016-11-17 09:45 | Inpatient (IN) | payer MEDICARE ==
[~2016-11-17] VITALS: Ht 165.1 cm; Wt 78.0 kg
--- NOTE | ~2016-11-17 | NDGEN ---
PATIENT'S NAME: LEISA PRATER [facility] AGE: 75 Y [address] ROOM: [address] [address] LOCATION: [facility] ADMIT DATE: 11/17/2016 Neurodiagnostics DISCHARGE DATE: FAMILY PHYSICIAN: PHYSICIAN, NO ATTENDING PHYSICIAN: Doyle Winter PROCEDURE: ELECTROENCEPHALOGRAM DATE OF PROCEDURE: 11/22/2016 INDICATIONS: This is a 75-year-old female patient who has poor mental status and encephalopathy. She is mostly sleeping during the study. The patient was making extensive movements during the study. Prior studies were compared to this particular study and in this 21-lead EEG, the general background rhythm was showing symmetric high amplitude, 25 to nearly 50 microvolts, stable rhythm that was fairly slow, at 6 to perhaps 7 hertz. Again during the time of the study, the patient was sleeping. There was extensive movement artifacts throughout the study that obscured the background rhythm. At midpoint into the study, photic stimulation was performed, and did not cause any change in the background rhythm. The amplitudes remained stable. IMPRESSION: The background rhythm is stable and symmetric showing a 7 hertz theta rhythm which would be consistent with the patient either sleeping or at baseline having an underlying encephalopathy. At no time was there any epileptiform features seen and no seizures were recorded. MD OMAR REEDER/reena /[id number] dtt: 11/29/16 1142 , CALLI VICTOR dtd: 11/24/16 1106
--- NOTE | ~2016-11-17 | HP ---
PATIENT'S NAME: LEISA PRATER [facility] AGE: 75 Y [address] ROOM: [place] [address] LOCATION: [facility] ADMIT DATE: 11/17/2016 History & Physical DISCHARGE DATE: FAMILY PHYSICIAN: PHYSICIAN, NO ATTENDING PHYSICIAN: Doyle Teran DATE OF SERVICE: HISTORY OF PRESENT ILLNESS: This 75-year-old lady is admitted for continuous medical treatment and intensive rehabilitation. Status post respiratory failure with hypoxia and generalized weakness with encephalopathy and disorientation. She was admitted to [facility] to start with on 10/31/2016 and at that time, the patient's gave the history that he saw her somewhat confused on baseline and was entirely obtunded because she was unable to breathe well and her saturations were reportedly at 65%. She was placed on 15 L non-rebreather oxygen and was taken to the ER. First ambulance was intercepted by [facility], and the patient was intubated in the field. It was reported by the that she may have exhibited some twitching, but he is not giving clear history of any convulsive activity to start with. He endorsed that the patient had been very tired and sleepy for several months before this. I saw her on initial evaluation or consult on 11/14/2016 and recommended if that she is not doing well to go home, that we will take her for intensive rehabilitation because of her confusion and higher risk of falling and trouble doing things on her own. At the present time and on 11/17/2016 on re-evaluation, I feel that she would benefit from intensive rehabilitation of about 10 days or so, depending on her progress aiming to discharge her at modified independence and hopefully to home. ALLERGIES: SHE IS ALLERGIC TO SULFA AND LATEX. MEDICATIONS: She is on the following medications: 1. Aspirin 81 mg p.o. daily. 2. Lipitor 40 mg p.o. daily. 3. Lactinex 4 tablets p.o. 3 times daily. PATIENT'S NAME: LEISA PRATER [facility] AGE: 75 Y [address] ROOM: [place] [address] LOCATION: [facility] ADMIT DATE: 11/17/2016 History & Physical DISCHARGE DATE: FAMILY PHYSICIAN: PHYSICIAN, NO ATTENDING PHYSICIAN: Doyle Teran 4. Zestril 2.5 mg p.o. daily. 5. Ativan 0.25 mg 3 times daily. 6. Mag-Ox 400, give 400 mg p.o. daily. 7. Protonix 40 mg p.o. daily. 8. Dilantin 100 mg p.o. 3 times daily. 9. Risperdal 0.25 mg in the morning. 10. Sotalol hydrochloride 80 mg, give 40 mg p.o. b.i.d. 11. Carafate 1000 mg before meal and at bedtime. 12. Myrbetriq extended release 50 mg, 1 tablet p.o. daily. 13. Depakene, valproic acid, 500 mg p.o. twice daily. 14. Tylenol 650 q.6 hours, do not exceed acetaminophen 4 g q.24 hours. 15. Prevalite 4 g p.o. 4 times daily p.r.n. 16. Zinc oxide for rash application as needed, topical. 17. Albuterol 2.5 mg q.4 hours. 18. Ascorbic acid 500 mg p.o. in the morning. 19. Calcium carbonate 600 mg plus vitamin D p.o. daily. 20. Vitamin D3, 2000 units p.o. daily in the evening. 21. Fosamax 70 mg p.o. daily. 22. Starting on 11/18, Risperdal 0.25 mg p.o. every other day for 4 doses, then stop. Indication, bipolar disorder. PAST MEDICAL HISTORY: Past history of significance: 1. Recently acute hypoxia with encephalopathy and stable at the present time and one time respiratory arrest. 2. History of hypertension. 3. Depression. 4. Reflux gastric disease. 5. Osteoporosis. 6. Bipolar disorder. 7. Possible seizure disorder and seizure precautions. PHYSICAL EXAMINATION: General: She is at the present time alert, somehow confused. VITAL SIGNS: On admission, blood pressure 111/51, temperature 98.3, pulse 95, respiratory rate 18. She is 5 feet 5 inches tall, weighs 77.4 kg. RECOMMENDATIONS AND PLAN: At the present time, we will put on intensive PT, OT, and Speech 3 hours per day, 15 hours per week. In the a.m., we will send for urinalysis, CBC, CMS, and prealbumin. We will keep on hospitalist and Dr. Bonilla, psychiatrist, and Dr. Becker for cardiology issues as needed. PATIENT'S NAME: LEISA PRATER [facility] AGE: 75 Y [address] ROOM: [place] [address] LOCATION: [facility] ADMIT DATE: 11/17/2016 History & Physical DISCHARGE DATE: FAMILY PHYSICIAN: PHYSICIAN, NO ATTENDING PHYSICIAN: Doyle Teran Estimated period of stay about 10 days aiming to discharge on modified independence. All the above was explained to her and the . They verbalized understanding and agreement. DOYLE TERAN MD WMS/modl /[id number] D: [id number] T: [id number] HISTORY & PHYSICAL
--- NOTE | ~2016-11-17 | CON ---
PATIENT'S NAME: SHANNON PRATER [facility] AGE: 76 Y [address] ROOM: [id number] [place] [address] LOCATION: [facility] ADMIT DATE: 11/17/2016 Consultation DISCHARGE DATE: 11/27/2016 FAMILY PHYSICIAN: PHYSICIAN, NO ATTENDING PHYSICIAN: Doyle Teran DATE OF CONSULTATION: 11/22/2016 REFERRING PHYSICIAN: Aleshia Prince MD TEAM MEMBERS REPORTING: Include Dr. Teran; Antonina Meneses, social sciences chair; Huong Estrada, RN; Nanette Tang, PT; Geetha York, PT; Heather Piedra, OT; Magnolia Mckeon, speech therapy; Stacy Zhou, therapeutic rec; and Sister Inocencia Soto, pastoral care. CURRENT STATUS: Shannon is a 75-year-old woman, admitted to our inpatient rehab unit on November 17, 2016, with an anoxic brain injury. The patient was status post respiratory arrest with hypoxia with encephalopathy and disorientation, markedly weak, generalized. She has a history of delirium, possible seizure disorder, dyslipidemia, hypertension, depression and bipolar disorder, osteoporosis, and reflux gastric disease. The patient is incontinent of bladder at times. She has some bruising on her skin. Takes Tylenol for pain. She is on a regular diet. Taking Ensure Enlive t.i.d. Intake is 100% for the most part. Prealbumin is 29. She can transfer rrx-vx-yjinoe and supine-to- sit at standby assistance and lots of time; nja-bb-vqqur and ljwfz-jh-qek, independent; and jmj-fm-vbdjz and lxdkg-mn-tvv, standby assistance for safety. She can walk 200 feet with close standby assistance. Does not always follow directions. The patient refused to do stairs. Her goals for PT have been set for mod I. She has met 3/5 short-term PT goals. The patient is impulsive. She can dress her upper body at maximum assistance; lower body, dependent; grooming, dependent to standby; bathing, dependent; toilet and shower transfers, contact guard assistance; moderate assistance for toileting. Her goals for OT have been set for standby. Comprehension is at moderate assistance. Language and expression, moderate assistance. Memory and problem solving, max. Swallowing standby to mod I. She does have difficulty focusing and processing information. The patient has been open to pastoral care. DISCHARGE PLAN: The patient is receiving 3 hours of PT, OT, and speech Sunday through Sunday. The patient has daily rehab, nursing, and physiatry involvement as well as therapeutic recreational services 4 days per week. The patient has shown functional improvement and is progressing. Please see her plan of care for specific goals. Plan is for the patient to discharge in approximately 1 week. Plan is for the patient to discharge to home with her in [place], PATIENT'S NAME: SHANNON PRATER [facility] AGE: 76 Y [address] ROOM: [address] [address] LOCATION: [facility] ADMIT DATE: 11/17/2016 Consultation DISCHARGE DATE: 11/27/2016 FAMILY PHYSICIAN: PHYSICIAN, NO ATTENDING PHYSICIAN: Doyle Teran. ANTONINA MENESES FOR DOYLE TERAN MD TD/modl /[id number] d: 12/04/16 1157 t: 12/18/16 1412, CONSULTATION REPORT
--- NOTE | ~2016-11-17 | DS ---
PATIENT'S NAME: LEISA PRATER [facility] AGE: 75 Y [address] ROOM: [place] [address] LOCATION: [facility] ADMIT DATE: 11/17/2016 Discharge Summary DISCHARGE DATE: FAMILY PHYSICIAN: PHYSICIAN, NO ATTENDING PHYSICIAN: Doyle Winter [facility] COURSE: This 75-year-old lady was admitted to rehab unit at [facility] on 11/17/2016 with: 1. Unstable gait. 2. Dependent activities of daily and self-care. 3. Status post respiratory arrest with hypoxia with encephalopathy and disorientation, markedly weak generalized. She was put on intensive PT, OT, and Speech. She is doing well, alert, oriented with cuing and remains confused at times and can be redirected. Vitals are as follows: Blood pressure 122/55, temperature 97.1, pulse 84, and respiratory rate 16. She is able to ambulate 600 feet x1 and 100 feet x1 with contact guard standby bilingual sales assistant and later she went to 300 feet x1. She is not to drive and/or operate any mechanical device, electrical device until she is reevaluated. Medications, as per discharge summary and any renewal, addition, or taking away any medication as per her family physician and she should follow up with her family physician as soon as possible and is well aware of that. No followup with me. She is given a script for outpatient PT, OT, Speech 3 times per week for 4 weeks and to follow up with her family physician for any renewal. This lady should not drive and/or operate any mechanical device and she is advised strongly against any alcohol intake. She is on the following medications: 1. Vitamin C 500 mg in the morning. 2. Aspirin 81 mg p.o. daily. 3. Lipitor 40 mg p.o. daily. 4. Os-Zack D 500 mg every night at bedtime. 5. Vitamin D 2000 units at 2100. 6. Lactinex 4 tablets p.o. 3 times daily. 7. Proventil 2.5 mg p.o. daily. 8. Ativan 0.25 mg 3 times daily. PATIENT'S NAME: LEISA PRATER [facility] AGE: 75 Y [address] ROOM: [place] [address] LOCATION: [facility] ADMIT DATE: 11/17/2016 Discharge Summary DISCHARGE DATE: FAMILY PHYSICIAN: PHYSICIAN, NO ATTENDING PHYSICIAN: Doyle Winter 9. Mycostatin ointment, apply to the james area 4 times daily topical. 10. Zyprexa 10 mg p.o. at night. 11. Protonix 40 mg p.o. daily. 12. Sotalol hydrochloride 40 mg twice daily. 13. Carafate 1000 mg p.o. before meals and at bedtime. 14. The patient's own medication, Myrbetriq extended release 50 mg p.o. everyday. 15. Tylenol 650 q.6 hours, do not exceed acetaminophen 4 g to q.24 hours, give 36 of them. FINAL DIAGNOSES: 1. Unstable gait. 2. Dependent activities of daily and self-care. 3. Status post respiratory failure with hypoxia, encephalitis, and weakness, now better. 4. Delirium. 5. Possible seizure disorder. 6. Dyslipidemia. 7. Hypertension. 8. History of depression and bipolar disorder. 9. Osteoporosis. 10. Reflux gastric disease. The patient is to follow with her family physician as soon as possible. No followup with me. All the above was explained to her and she was during her stay, seen by neurologist and hospitalist and also consulted to the psychiatrist, details on record. All the above was explained to her and her in detail. They verbalized understanding and agreement. DOYLE WINTER MD WMS/modl /[id number] d: 11/27/16 021 t: 11/27/16 0749, DISCHARGE SUMMARY
--- NOTE | ~2016-11-17 | CON ---
PATIENT'S NAME: LEISA PRATER [facility] AGE: 75 Y [address] ROOM: [address] [address] LOCATION: [facility] ADMIT DATE: 11/17/2016 Consultation DISCHARGE DATE: FAMILY PHYSICIAN: PHYSICIAN, NO ATTENDING PHYSICIAN: Doyle Winter DATE OF CONSULTATION: 11/24/2016 REFERRING PHYSICIAN: Aleshia Prince MD DATA: The patient was seen today on a one-to-one, and the case was discussed with the nurse for collateral information. The case was also discussed with Dr. Winter before and after seeing the patient. The case was also discussed with the before and after seeing the patient, and I reviewed the electronic records and the paper records with the following findings. CHIEF COMPLAINT: Confusion, delirium. DIAGNOSES: At the time of this evaluation are: 1. Delirium, acute, mixed, due to multiple medical etiologies. 2. Bipolar disorder by history. 3. Alcohol use disorder by history. RECOMMENDATIONS: 1. Since the patient is delirious, I would say this is not going to be a good time to discharge the patient. I know she has not been the perfect candidate for rehab, but again being delirious, I feel that we need to keep the patient still. 2. The patient is on 3 medications that have been recently prescribed for mood. The patient is on Dilantin, Depakote, and Risperdal. The patient, the patient's , and the staff say that she has never had a seizure. So, apparently, they were prescribed for bipolar disorder. So, there was already even a recommendation before for discontinuing the Dilantin. So, at the present time, the patient being confused and not having some reasoning for the medication, the Dilantin, I discontinued the Dilantin, discontinued the Depakote, and discontinued the Risperdal, changing except for olanzapine, something that I discussed with both the patient and the patient's , and they agree upon as a better medication. Once the patient is less confused, she might actually resume the rehab or be discharged, but once this is clear. HISTORY OF PRESENT ILLNESS: This lady ended up in the hospital with multiple medical problems and in need PATIENT'S NAME: LEISA PRATER [facility] AGE: 75 Y [address] ROOM: [address] [place], [place] [address] LOCATION: [facility] ADMIT DATE: 11/17/2016 Consultation DISCHARGE DATE: FAMILY PHYSICIAN: PHYSICIAN, NO ATTENDING PHYSICIAN: Doyle Winter of rehab. Nevertheless, she has not been completely cooperative, and 2 psychiatric consultations were requested prior to my seeing the patient. One of the doctors diagnosed the patient with being delirious, and the other, having bipolar disorder. Both things seem to be reasonable actually. The patient has a prior diagnosis of bipolar disorder, but when I see the patient today, she is clearly disoriented, not knowing the date, not knowing the name of where she was, or the reason for being here. Has not been sleeping well in the last few days and is quite labile and not a good historian. Again, the patient's gave me the prior history of bipolar disorder with some manic episode and even a previous time in which the patient was completely confused in her lifetime. No issues with obsession and compulsion, eating disorder, post-traumatization, or gambling. SUBSTANCE USE HISTORY: There is quite a bit of possibility of problems with alcohol in the past. seem to be quite worried about that, insisting to the patient that she should not drink once they go home. Nevertheless, she has never gone to rehab or treatment. PAST PSYCHIATRIC HISTORY: They could not give any history of previous hospitalizations for psychiatric reasons. MENTAL STATUS EXAMINATION: This is a lady. Marginally cooperative. Poor historian. Sometimes a little agitated. Speech is loud at times. Mood is labile. Affect is labile. Thought content is relevant by the patient denying any suicidal or homicidal ideation, denying any auditory or visual hallucinations. No delusional thoughts. Thought process seems to be coherent, but not congruent. Insight and judgment seem to be impaired. Memory is deficient in the short and the long-term. I She is right now disoriented, but the level of alertness seems to be changing and fluctuating. Intelligence is average. LAMONTE SHEIKH MD HG/modl /[id number] d: 11/24/16 1157 t: 11/29/16 0929, CONSULTATION REPORT
--- NOTE | 2016-11-17 09:35 | NUR ---
D:Transfered from NTU this AM. Ambulated with 1 assist, gait belt and walker to the recliner. Confused, tearful, labile emotions. Gerry is at the bedside. HILO bed brought to the room. Ecchymosis to L) leg with hematoma palpated. [facility] nurse here on admission, red groinds observed. Puncture to right groin. MIdline IV to L) upper arm.
[~2016-11-17 09:45] MED LIST changes: -ASPIRIN (CHILDR81 MG PO; -ATIVAN 0.5MG0.5 MG PO; -CARAFATE1 GM PO; -FEOSOL325 MG PO; -LACTINEX (FLORA1 TAB PO; -LIPITOR40 MG PO; -PROTONIX40 MG PO; -SOTALOL80 MG PO; -TYLENOL325 MG PO; -ZESTRIL2.5 MG PO; -ZYPREXA10 MG PO
[2016-11-17 11:58] LABS: BILIRUBIN URINE NEGATIVE (NEGATIVE); BLOOD URINE NEGATIVE /UL (NEGATIVE); COLOR URINE YELLOW (YELLOW); GLUCOSE URINE NEGATIVE (NEGATIVE); KETONE URINE 5 mg/dL (NEGATIVE); LEUKOCYTES URINE NEGATIVE /UL (NEGATIVE); NITRITE URINE NEGATIVE (NEGATIVE); PROTEIN URINE NEGATIVE (NEGATIVE); SPEC GRAVITY URINE 1.005 (1.003-1.035); TURBIDITY URINE CLEAR (CLEAR); UROBILINOGEN URINE NORMAL (NORMAL)
--- NOTE | 2016-11-17 13:26 | NUR ---
Significant Event:Alert to self, confused statements, labile emotions, tearful. Ambulates with 1 assist, gait belt and walker, needs multiple cues. Impulsive, in hi lo bed. attentive at the bedside, reviewed safety and NEVER leaving patient alone, because ultra high fall risk. SBP 90's. HR 90's. Ecchymosis, hematoma to left leg, puncture site to right groin, karma groins pink, new medication orders. Feeds self with set up. Tylenol this AM for generalized pain. Reports no numbness and tingling. Incontinent of bowel and bladder. BM today. Follow up:Safety.
--- NOTE | 2016-11-17 15:06 | NUR ---
Significant Event: PATIENT ORIENTED TO SELF. CONFUSED ABOUT SITUATION, TIME, LOCATION. 1 ASSIST, WALKER, GAIT BELT. HI LO BED, VERY HIGH FALL RISK. AT BEDSIDE HELPFUL. VITALS STABLE ON ROOM AIR. ECCYMOSIS TO LEFT LEG. GROIN PINK. INCONTINENT AT TIMES. FEEDS SELF WITH SET UP AND CUES. DENIES PAIN AT THIS TIME. HAS BEEN VIOLENT WITH STAFF, HITTING AND YELLING. MIDLINE IV TO LEFT UPPER ARM. MEDS CRUSHED IN PUDDING. Follow up:
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
[2016-11-18 07:11] LABS: BASOPHIL # 0.1 K/uL (0.0-0.2); BASOPHIL % 0.3 %; EOSINOPHIL # 0.5 K/uL (0.0-0.5); EOSINOPHIL % 3.7 %; HEMATOCRIT 29.8 % (33.0-46.0); HEMOGLOBIN 9.3 g/dL (10.0-15.0); IMMATURE GRANULOCYTE # 0.6 K/uL (0.0-0.3); IMMATURE GRANULOCYTE % 4.3 %; LYMPHOCYTE # 1.4 K/uL (0.8-4.0); LYMPHOCYTE % 9.2 %; MCH 32.5 pg (27.0-34.0); MCHC 31.2 gm/dL (32.0-36.5); MCV 104.2 fl (83.0-98.0); MONOCYTE # 2.1 K/uL (0.0-1.0); MONOCYTE % 14.3 %; MPV 9.2 fl (9.4-12.4); NEUTROPHIL % 68.2 %; NRBC % 0.1 /100WBC (0-0.00); PLATELET COUNT 419 K/uL (150-450); RBC 2.86 M/uL (3.50-5.50); WBC 14.7 K/uL (4.0-11.0)
[2016-11-18 07:12] LABS: RDW-CV 19.5 % (11.9-14.6)
[2016-11-18 07:36] LABS: ALBUMIN 2.8 gm/dL (3.5-5.0); ALK PHOS 82 IU/L (33-138); ALT 62 IU/L (12-78); ANION GAP 10.2 (10.0-19.0); AST 66 IU/L (10-40); BLOOD UREA NITROGEN 11 mg/dL (6-24); CALCIUM 8.8 mg/dL (8.5-10.5); CHLORIDE 108 mMol/L (96-110); CO2 27 mMol/L (22-32); CREATININE 0.6 mg/dL (0.5-1.1); ESTIMATED GFR (MDRD EQUATION) > 60; POTASSIUM 4.2 mMol/L (3.7-5.1); SODIUM 141 mMol/L (135-145); TOTAL PROTEIN 6.5 g/dL (6.0-8.4)
[2016-11-18 07:37] LABS: TOTAL BILIRUBIN 0.8 mg/dL (0.0-1.5)
--- NOTE | 2016-11-18 15:07 | NUR ---
Significant Event: Disoriented to time and place. Up with 1A walker and gait belt. Denies pain. in room throughout the day. Impulsive. Alarms at all times. Groin pink. Incontinent at times. Moods change frequently. Goes from cooperative to crying or yelling. Anxious throughout the day. Takes scheduled ativan. Meds crushed in pudding. Follow up:
--- NOTE | 2016-11-19 04:45 | NUR ---
Significant Event: Patient is alert and disoriented. VSS. Up one assist with GB/Walker, needs lots of direction. Moods continue to change from one minute to the next. Yells out at times seems tormented by something. Is very anxious is up and down can not rest. No sleep tonight. Is incontinent of bowel and bladder at times but will also tell you when she needs to go sometimes. Must be alarmed at all times for safety. Follow up:
[2016-11-19 05:31] LABS: BASOPHIL # 0.1 K/uL (0.0-0.2); BASOPHIL % 0.4 %; EOSINOPHIL # 0.4 K/uL (0.0-0.5); EOSINOPHIL % 3.2 %; HEMATOCRIT 29.3 % (33.0-46.0); HEMOGLOBIN 9.5 g/dL (10.0-15.0); IMMATURE GRANULOCYTE # 0.4 K/uL (0.0-0.3); IMMATURE GRANULOCYTE % 2.9 %; LYMPHOCYTE # 1.4 K/uL (0.8-4.0); LYMPHOCYTE % 10.7 %; MCH 33.1 pg (27.0-34.0); MCHC 32.4 gm/dL (32.0-36.5); MCV 102.1 fl (83.0-98.0); MONOCYTE # 1.8 K/uL (0.0-1.0); MONOCYTE % 14.3 %; MPV 9.2 fl (9.4-12.4); NEUTROPHIL # (ANC) 8.8 K/uL (1.8-7.8); NEUTROPHIL % 68.5 %; NRBC % 0.2 /100WBC (0-0.00); PLATELET COUNT 467 K/uL (150-450); RBC 2.87 M/uL (3.50-5.50); RDW-CV 19.9 % (11.9-14.6); WBC 12.9 K/uL (4.0-11.0)
--- NOTE | 2016-11-19 14:47 | NUR ---
Significant Event: Disoriented to time and place. Up with 1A walker and gait belt. Denies pain. present this morning. Impulsive. Alarms at all times. Very agitated this afternoon. Yells and albina one minute and cooperative the next. Incontinent. Meds crushed in pudding. Follow up:
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
--- NOTE | 2016-11-20 11:00 | NUR ---
D: Therapeutic Recreation Initial Assessment on the 11/20/16. I: Patient seen for 2 units at 1100 to begin initial evaluation. R: Patient's current living situation and status: house in town Home entrance steps: 2 Living with: Spouses name: Gerry # of children: 4 ? Driving: spouse drives Ambulating: I Equipment: N/A Hand Dominance: Right Manager Application strength: not tested Eye sight: fair Reading ability: not tested Hearing: [place] Speech: clear Cognition: impaired Comprehension: poor Following directions: at times Initiating: tangent Eye contact: poor Affect: anxious COMMUNITY INVOLVEMENT: grocery shopping, out to eat, car rides, coffee with ladies, go shopping LEISURE INTERESTS: some TV, dog - patches, garden, yard work, khadra, cook, play with keyana, draw, color Patient is referred by medical staff for treatment and evaluation in the following areas: Community Skills, Functional Leisure Skills, Participation, Leisure Education/Behaviors, Family Education, Cognitive, Emotional. Information obtained: Interview, Chart Review, Family resource, Observation, other. BARRIERS TO LEISURE: Social, Financial, Physical, Lifestyle (alcohol use, hx of depression (on meds) Transportation ( Attitudinal, Leisure Skills ) Patient determined to be: APPROPRIATE FOR THERAPEUTIC RECREATION ASSESSMENT. TREATMENT WILL INCLUDE: Community living skills training Functional leisure development Physical skills development Cognitive skills development Social skills development Leisure education Emotional/behavioral adaptation Family education Community resources/packet TARGET EQUIPMENT/INFORMATION: Parking Permit to assess need Community Resources Energy conservation in community setting Van/Service/Taxi Scrip Adapted Leisure Equipment Stress management/Relaxation techniques Functional car transfers Leisure Education Behaviors: Attitude, Awareness, Participation. Patient functional skills level and potential: guarded, pt demonstrates cognitive deficit and poor safety awareness. Patient oriented ot TR services on Rehab unit. Pt/family provided input into goals setting and plan of care. Pt's goal is to return home. P: Target date set with personal goals established. Will continue with POC focusing on pt/family training and education. For additional information please see Nursing Data Base, PT, OT, CM, ST, initial assessments to [facility] and Interdisciplinary Assessments.
--- NOTE | 2016-11-20 13:31 | NUR ---
Significant Event: PATIENT DISORIENTED TO PLACE, TIME, SITUATION. HI LOW BED, ALARMS AT ALL TIMES. DO NOT LEAVE ALONE IN BATHROOM. GETS UP QUICKLY FROM BED. INCONTINENT OF BOWEL AND BLADDER AT TIMES. VITALS STABLE ON ROOM AIR. MEDS CRUSHED IN PUDDING. TYLENOL FOR HEADACHE THIS MORNING. NOT COOPERATIVE FOR THERAPY CONSISTENTLY. HAS BEEN LABILE TODAY. THE MORNING STARTED OFF WELL, BUT SHE GOT AGGITATED THROUGHOUT THE DAY. Follow up:
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
--- NOTE | 2016-11-21 15:19 | NUR ---
Significant Event: Disoriented to time and place. Hi low bed. Impulsive. Alarms at all times. 1:1 this shift. VSS. Cries and yells at times. Takes pills crushed in pudding. Incontinent at times. Tylenol this afternoon for complaints of pain to lower back. Aggitated throughout day. Complaints of itching to groin area. Nystatin applied. Follow up:
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
--- NOTE | 2016-11-22 12:28 | NUR ---
A-SCREENED D/T LOS; NEW ADMIT TO [facility] ALERT/DISORIENTED; IMPULSIVE. HITTING/PINCHING STAFF AT TIMES HT: 65 IN. CBW (STANDING SCALE): 77.3 KG; ADMIT WT (W/C SCALE): 80.2 KG BMI: 28.3 LABS: NA 141, K+ 4.2, GLU 91, BUN 11, EXCHANGE ENGINEER 0.6, ALB 2.8, PREALB 29.0 MEDS: ATARAX, MAG-OX, ZESTRIL, PROTONIX, VIT D, OSCAL+D, DEPAKENE, DILANTIN, ATIVAN, LACTINEX, VIT C, PRN BOWEL MEDS, RISPERDAL DIET RX: REGULAR W/ENSURE ENLIVE TID. PO INTAKE OF MEALS REF-100%; AVG IS 38%. INTAKE OF THE ENSURE ENLIVE IS 100% FOR THE MOST PART. ENSURE PROVIDING 1050 KCALS AND60 GM PROTEIN EST NUTR NEEDS: 5451-8829 KCALS (25-30 KCALS/KG) 62-85 GM PROTEIN (0.8-1.1 GM/KG) 1 ML FLUID/KCAL D-AT NUTRITION RISK W/INADEQUATE ORAL INTAKE R/T ALTERED MENTAL STATUS AEB INTAKE RECORDS, CHART REVIEW. I-CONTINUE W/ENSURE ENLIVE TID M/E-GOAL: PO INTAKE >/=50% BY NEXT F/U 1)F/U PO INTAKE, SUPPLEMENT, WT, LABS, AND POC IN 5 DAYS 2)ASSIST NEEDED
--- NOTE | 2016-11-22 16:21 | NUR ---
Significant Event:PATIENT ALERT BUT IS DISORIENTED TO TIME AND PLACE. MOOD IS VERY LABILE. HAS BEEN A 1:1 WHEN NOT IN THERAPY. VSS. TRANSFERS WITH SBA. BED ALARMS ON AT ALL TIMES. HAS TAKEN MEDS WHOLE WITH WATER WITHOUT DIFFICULTY. NO OTHER COMPLAINTS. Follow up:
--- NOTE | 2016-11-23 04:17 | NUR ---
Significant Event: Patient has been alert and disoriented. VSS. Up with hands on assist and GB. Is not using her walker. Is very impulsive. Up and down can not stay still. Was showered last night and seemed she would rest but fights it. Has walked in halls rides in w/c and did rest alittle. C/O of itching and is scratching herself. Called Dr Valdivia and aquired an order for Benadryl for the itching and Calamine lotion. Hoping the Benadryl would help her sleep. Did rest some but not for long. enies pain. Continues on 1:1 for safety. Doing good with meds whole in pudding. Follow up:
--- NOTE | 2016-11-23 16:16 | NUR ---
D: TR progress note for 11/23/16. I: Pt seen for 2 units at 1102 for community integration skills building, functional transfers, safety awareness and cognitive task. R: Pt seen for functional skills building working on mobility, safety, transfers and community skills in anticipation for discharge back into community. Pt taken around [facility] outdoors to simulate community environment. Pt transferred sit > stand from EOB CGA, pivoted to WC with cues for hand placement CGA. Pt transferred sit > stand from WC SBA, ambulated at total of 200+ feet SBA > CGA with noted need for therapeutic rest breaks. Pt preformed community transfers on/off low park bench with arm rest and low park bench with no arm rest with cues for hand placement. Pt responded to verbal comments and cooperative with Therapies (TR/OT) but continued to have tangent comments and communication throughout session. P: Will continue to see to address goals and plan of care.
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
--- NOTE | 2016-11-24 05:30 | NUR ---
Significant Event: and dog Patches were here last evening til almost 1999--he will return at 0730. Pt impulsive, doesn't use call light, mood is labile and goes from teary, worried, and anxious to angry and some yelling. Takes meds whole in pudding. Did walk the halls during the night with 1:1 staff at her side, pt refuses gait belt majority of time, did go to back employee elevators and started yelling at staff--did manage to divert her to return to [facility] and was in/out bed, to dining room, to and finally settled to sleep shortly before 0400. Had given scheduled meds last evening, gave Benadryl at 2320. Pt generally hasnt slept much--was sitting in bed and dozing off while dangling at bedside edge. Pts' mood improved slightly when staff was interchanged at different intervals, pt does better with a calm unhurried attitude. Talks of various subject matters with not all being coherent, is "flighty" with her conversation. Edema to lower legs/feet of 2+. Fading bruising to left upper thigh/lower leg. Has Nystatin ointment to bilat groins, slightly reddened but much improved. Previously had a midline to left arm, but has been removed. Follow up:Awaiting possible transfer to [place] for med management but not sure when. Safety. 1:1 observation due to impulsiveness.
--- NOTE | 2016-11-24 06:58 | NUR ---
After numerous attempts pt did sit on bedside edge and would close eyes and start to doze off while leaning, staff encouraged pt to lie down into bed to rest. Pt would begin to doze off and then arouse herself back awake. Applied lotion to legs/arms, lights dimmed, and bedcovers reapplied several times pt was able to doze off at approx 0355. Pt did mumble and call out while asleep but didn't arouse herself fully. Staff remained at bedside as 1:1 for safety reasons due to impulsiveness. Pt slept til approx 0540. By 0600 pt had removed her pull up brief and proceeded to urinate in bed causing a bed linen change. Staff proceeds to get pt up and do a.m cares at the sink, pt then ambulates in hallway with staff supervision.
--- NOTE | 2016-11-24 12:49 | NUR ---
Significant Event:A/O X 3. Psych consult, Dr Lindsay, "pt is experiencing delirium" . Started on Zyprexa 5 mg PO x 1, will get 10 mg at bedtime. Pacing, passive aggressive commments about staff after they leave the room. Refusing therapies at times, to sleep, but up to pace as soon as therapist leaves. Showered this AM. Tolerating meds whole with pudding. Incontinent or urine at times. PRN Oxycodone at 1200. here to discuss medicattions with meds. Follow up:Stay for 48 more hours to evaluate new medication then home on Sunday.
--- NOTE | 2016-11-24 13:00 | NUR ---
D:I have reviewed and agree with charting completed by TIMMY Regan.
--- NOTE | 2016-11-24 15:09 | NUR ---
[facility] Case Management Prefunctioning and Psycho-Social Initial Assessment for 11/17/16 and Case Conference Note for 11/22/16 D: Initial Corrections CounselorSupervisor Ore Dressing and Case Conference Note. I: Input from: patient, family, Dr. Prince, Dr. Winter, Antonina Meneses [facility] R: Reason for admission: anoxic brain injury, rule out seizure. Acute hypoxia. Admission Date to [facility]: 11/17/16 Admission Date to Hospital: 10/31/16 Prior level of functioning: patient was independent with adl's and household prior to injury. Prior living situation: 3 steps to ent home with a railing. Financial resources/expectations: patient has Medicare and supplement. Resources used: none. Resources available: HHC, outpatient therapy, SNF, GROUP HOME, [facility], DME. 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 Monitor for depression and anxiety. Restless at times. Impulsive. Alarms. Is a fall risk. Long standing history of bipolar disorder. Legal concerns: none. Discharge goal: home with support of . Assessment: Mirela is a 75 year old woman from [place], [place] admitted after an anoxic brain injury. She has support of her . Patient is having difficulty with moods--vary during the day. [facility] [place] is following. Team conference was held and plan is for patient to d/c as soon as medically stable in approx. 5-7 days. Will follow and assist as needed. Orientation to the program and CM services completed with Mirela. Initial plan of care and estimated length of stay discussed, disclosure statement reviewed including patient assessment rights. P: Target date and individual goals established. Please see POC for details. For additional information please see Nursing Data Base, PT, OT, TR, ST, Initial assessments to [facility].
--- NOTE | 2016-11-25 04:56 | NUR ---
Significant Event: patient a 1:1. HAS BEEN UP AND ABOUT IN MORALES AND ROOM WITH ASSIST. FAIRLY STEADY GAIT. WAS STARTED ON ZYPREXA ON SUNDAY. HAD TYLENOL AT HS FOR C/O HEADACHE. NYSTATIN TO BILATERAL GROIN. BILATERAL BUTTOCKS REDDENED. SAGE CARE DONE. HAS BEEN COOPERATIVE WITH CARES, JUST RESTLESS AT TIMES. Follow up:
--- NOTE | 2016-11-25 13:06 | NUR ---
Significant Event: HAZARDOUS MED PRECAUTION. UP 1 ASSIST, HAND HOLD. ORIENTED TO PERSON. 1:1 CARE ALL SHIFT. HAS NOT BEEN COMBATIVE THIS SHIFT BUT IS LABILE. HAS TOLERATED THE 1:1 CARE WELL. VITALS STABLE ON ROOM AIR. TYLENOL FOR PAIN X1. CONTINENT OF BOWEL AND BLADDER THIS SHIFT. FED SELF WELL. PILLS WHOLE WITH WATER. HI LO BED. REFUSED A COUPLE MEDICATIONS THIS SHIFT SUCH SUCRALFATE BUT OTHERWISE WAS FAIRLY COOPERATIVE. SHE JUMPS OUT OF BED WITHOUT NOTICE OFTEN. AT BEDSIDE PART OF THE DAY. Follow up:
--- NOTE | 2016-11-26 02:56 | NUR ---
Significant Event: TYLENOL 650 MG GIVNE AT 0133 PER PATIENT REQUEST, DENIES PAIN. RESTLESS. UP AND ABOUT IN ROOM AND MORALES THEN BACK TO BED. CONVERSATIONS GO FROM 1 SUBJECT TO NEXT. HAS SLEPT POOLRY. REMIANS A 1:1. PLEASANT. Follow up:
--- NOTE | 2016-11-26 15:09 | NUR ---
Significant Event: PT CONTINUES TO BE IMPULSIVE AND RESTLESS T/O DAY. pT WAS 1:1 IN THE AM THEN NOT FROM 11-3 THEN NITROGLYCERIN NITRATOR OPERATOR BATCH BACK IN ROOM WITH PT. PT STARTED ESCALATING AROUND 1300, STARTED GETTING MORE AGGITATED AROUND 1300. ALARMS ON BED AND CHAIR AT ALL TIMES. TLENOL AT 0929 FOR HEADACHE WITH RELIEF. PT CONTINUES TO HAVE SPARATIC THOUGHTS T/O THE DAY. gENERALIZED LOWER EXT. EDEMA. Follow up: HOME TOMORROW 12/28. , PAIN MANAGEMENT, ACTIVITY
--- NOTE | 2016-11-27 04:25 | NUR ---
Significant Event: hs been less restless than previous night. is implusive and wants to walk when gets up. disoriented to time and place. anxious to go home. no c/o pain. plan is to dismiss today. Follow up:
[2016-11-27 06:52] LABS: ALBUMIN 2.8 gm/dL (3.5-5.0); ALK PHOS 79 IU/L (33-138); ALT 40 IU/L (12-78); ANION GAP 11.2 (10.0-19.0); AST 41 IU/L (10-40); BLOOD UREA NITROGEN 20 mg/dL (6-24); CALCIUM 8.4 mg/dL (8.5-10.5); CHLORIDE 112 mMol/L (96-110); CO2 26 mMol/L (22-32); CREATININE 0.6 mg/dL (0.5-1.1); ESTIMATED GFR (MDRD EQUATION) > 60; POTASSIUM 4.2 mMol/L (3.7-5.1); SODIUM 145 mMol/L (135-145); TOTAL PROTEIN 6.3 g/dL (6.0-8.4)
[2016-11-27 06:53] LABS: TOTAL BILIRUBIN 0.3 mg/dL (0.0-1.5)
[2016-11-27] MEDS ORDERED: ASPIRIN (CHILDR81 MG PO (09:56)
[2016-11-27] MEDS ORDERED: LIPITOR40 MG PO (09:57)
[2016-11-27] MEDS ORDERED: LACTINEX (FLORA1 TAB PO (09:59)
[2016-11-27] MEDS ORDERED: ZESTRIL2.5 MG PO (10:01)
[2016-11-27] MEDS ORDERED: ATIVAN 0.5MG0.5 MG PO ×2 (10:02→10:03)
[2016-11-27] MEDS ORDERED: ZYPREXA10 MG PO (10:05)
[2016-11-27] MEDS ORDERED: PROTONIX40 MG PO (10:06)
[2016-11-27] MEDS ORDERED: SOTALOL80 MG PO (10:07)
[2016-11-27] MEDS ORDERED: CARAFATE1 GM PO (10:09)
[2016-11-27] MEDS ORDERED: TYLENOL325 MG PO (10:10)
[2016-11-27] MEDS ORDERED: FEOSOL325 MG PO (11:14)
--- NOTE | 2016-11-27 12:11 | NUR ---
D: TR progress note for 11/27/16. I: Pt seen for 2 units at 1105 for community integration skills building, coping strategies, safety awareness and discharge planning. R: Pt seen for functional skills building working on community integration skills, safety and mobility in anticipation for discharge back into community with spouse. Pt's spouse present for session. Education and review done on energy conservation in community setting, safety when traveling long distances in vehicle, safety with inclement weather (hot/cold) and slick surfaces. Discussed use of bathroom when out with opposite sex and no unisex bathroom available. Education and review done on not operating motorized vehicle until receiving Physician's approval and reviewed community safety concerns. Discussed safety concerns with animals in home and discussed use of leisure task to promote recovery. Pt/spouse had no questions or concerns. P: Will discharge home today, 11/27/16.
--- NOTE | 2016-11-27 12:43 | NUR ---
Significant Event:PATIENT ALERT BUT IS DISORIENTED TO TIME AND PLACE. HAS BEEN IN A VERY GOOD MOOD THIS AM BUT WAS HAVING A HARD TIME WAKING UP TO START. ONCE SHE WAS UP SHE HAS BEEN VERY PLEASANT AND COOPERATIVE. VSS. TRANSFERS FAIRLY INDEPENDANTLY WITH SBA. DENIES PAIN. HERE EARLY AND PATIENT READY FOR DISCHARGE. INSTRUCTIONS REVIEWED WITH PATIENT AND . QUESTIONS ANSWERED AND COPIES OF INSTRUCTIONS AND PRESCRIPTIONS GIVEN TO . DC TO FRONT ENTRANCE VIA WHEELCHAIR AND DC HOME VIA PRIVATE VEHICLE WITH . NO OTHER COMPLAINTS. Follow up:
--- NOTE | 2016-12-01 14:45 | NUR ---
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 Disposition: home with home health care. Resource Discussed: HHC set up through [facility] from the hospital. Therapy Recommendation: see therapy notes. Equipment Recommendations: see therapy notes. Financial Resources Used: patient has Medicare and no supplement. Other referrals: Referral to [facility]. Patient/Family education completed: prior to d/c. Patient/Family preference: in agreement. Plan of Care and Goal summary: met all CM discharge goals. P: Complete follow up within one week: call patient next week to see how patient is doing post discharge.
== END 2016-11-27 12:20 | disposition home health service (06) | DRG 947 ==
LOC: GIRP 09:45
PROVIDERS: Internal Medicine; ADMIT Physical Medicine & Rehabilitation
DX: R53.81 Other malaise (principal); G93.40 Encephalopathy, unspecified; F05 Delirium due to known physiological condition; I48.0 Paroxysmal atrial fibrillation; R26.89 Other abnormalities of gait and mobility; E78.5 Hyperlipidemia, unspecified; I10 Essential (primary) hypertension; F32.9 Major depressive disorder, single episode, unspecified; F31.9 Bipolar disorder, unspecified; M81.0 Age-related osteoporosis without current pathological fracture; I73.9 Peripheral vascular disease, unspecified; Z87.09 Personal history of other diseases of the respiratory system; I25.2 Old myocardial infarction

== ENCOUNTER → 2016-12-18 | Outpatient (CLI) | payer MEDICARE ==
[~2016-12-18] MED LIST changes: +ASPIRIN (CHILDR81 MG PO; +ATIVAN 0.5MG0.5 MG PO; +CARAFATE1 GM PO; +FEOSOL325 MG PO; +LACTINEX (FLORA1 TAB PO; +LIPITOR40 MG PO; +PROTONIX40 MG PO; +SOTALOL80 MG PO; +TYLENOL325 MG PO; +ZESTRIL2.5 MG PO; +ZYPREXA10 MG PO
[2016-12-18 18:09] LABS: BASOPHIL # 0.1 K/uL (0.0-0.2); BASOPHIL % 0.7 %; EOSINOPHIL # 0.6 K/uL (0.0-0.5); EOSINOPHIL % 9.1 %; HEMOGLOBIN 12.8 g/dL (10.0-15.0); IMMATURE GRANULOCYTE % 0.3 %; LYMPHOCYTE # 1.3 K/uL (0.8-4.0); LYMPHOCYTE % 19.9 %; MCV 99.8 fl (83.0-98.0); MONOCYTE # 0.6 K/uL (0.0-1.0); MONOCYTE % 9.1 %; MPV 10.8 fl (9.4-12.4); NEUTROPHIL # (ANC) 4.1 K/uL (1.8-7.8); NEUTROPHIL % 60.9 %; NRBC % 0 /100WBC (0-0.00); WBC 6.7 K/uL (4.0-11.0)
[2016-12-18 18:10] LABS: HEMATOCRIT 39.9 % (33.0-46.0); MCHC 32.1 gm/dL (32.0-36.5); PLATELET COUNT 304 K/uL (150-450); RDW-CV 14.6 % (11.9-14.6)
[2016-12-18 18:30] LABS: ALBUMIN 3.5 gm/dL (3.5-5.0); CALCIUM 8.9 mg/dL (8.5-10.5); CREATININE 0.6 mg/dL (0.5-1.1); TOTAL BILIRUBIN 0.3 mg/dL (0.0-1.5); TOTAL PROTEIN 7.3 g/dL (6.0-8.4)
== END | disposition disaster alternative care site (69) ==
LOC: LNHI 18:06
PROVIDERS: Internal Medicine Cardiovascular Disease
DX: I25.10 Atherosclerotic heart disease of native coronary artery without angina pectoris (principal)